=== PATIENT | female | born 1955 | race Caucasian/White ===

== ENCOUNTER 2020-04-30 10:51 | Outpatient (REF) | payer MEDICARE, MEDICAID, SELFPAY ==
[2020-04-30 14:36] LABS: MANUAL DIFF FLAG NO
[2020-04-30 14:43] LABS: Basophils Absolute Auto 0.1 X10*3/uL (0.0-0.2); Basophils Percent Auto 0.6 % (0-2); Hematocrit 43.8 % (37-47); Imm Gran Abs Auto 0.06 X10*3/uL (0.00-0.03); Imm Gran Pct Auto 0.6 % (0.0-0.4); Lymphocytes Absolute Auto 2.3 X10*3/uL (1.2-4.9); Lymphocytes Percent Auto 24.7 % (20-40); Mean Corpuscular Hemoglobin 28.5 pg (27.0-33.0); Mean Corpuscular Volume 89.2 fL (80-98); Mean Platelet Volume 9.9 fL (9.4-12.3); Monocytes Absolute Auto 0.7 X10*3/uL (0.1-1.2); Monocytes Percent Auto 7.4 % (2-11); Neutrophils Absolute Auto 6.2 X10*3/uL (2.0-8.3); Neutrophils Percent Auto 66.7 % (45-73); Platelet Count 252 X10*3/uL (160-400); Red Blood Count 4.91 X10*6/uL (4.20-5.50); Red Cell Distribution Width 14.6 % (11.0-16.0); White Blood Count 9.3 X10*3/uL (4.8-10.8)
[2020-04-30 15:22] LABS: Alanine Aminotransferase 13 U/L (0-31); Albumin Level 4.4 g/dL (3.5-5.0); Alkaline Phosphatase 128 U/L (39-117); Anion Gap 17 (12-20); Aspartate Amino Transferase 12 U/L (5-31); Bilirubin Total 0.3 mg/dL (0.0-1.0); Blood Urea Nitrogen 15 mg/dL (9-16); Calcium 8.7 mg/dL (8.4-10.2); Carbon Dioxide 27 mmol/L (22-29); Chloride 102 mmol/L (96-108); Cholesterol 131 mg/dL; Estimated Glomerular Filt Rate > 60; Glucose Fasting 116 mg/dL (60-99); HDL Cholesterol 35 mg/dL; LDL Cholesterol Calculated 52 mg/dl; Potassium 4.6 mmol/l (3.3-5.1); Sodium 141 mmol/L (135-145); Total Protein 7.9 g/dL (6.5-8.0); Triglycerides 220 mg/dL
[2020-04-30 15:26] LABS: Estimated Average Glucose 140 mg/dL; Hemoglobin A1c % 6.5 %
[2020-04-30 15:47] LABS: Microalbum/Creatinine Ratio Ur 18.7 ug/mg cr
== END 2020-04-30 10:52 | disposition home or self-care (01) ==
LOC: HO.HMGCLDS 10:51
PROVIDERS: PCP Internal Medicine; Visit Provider Internal Medicine
DX: E11.9 Type 2 diabetes mellitus without complications (principal); E78.5 Hyperlipidemia, unspecified; F32.9 Major depressive disorder, single episode, unspecified; K21.9 Gastro-esophageal reflux disease without esophagitis
CPT/HCPCS: 36415; 80053; 80061; 82043; 83036; 85025

== ENCOUNTER 2020-10-28 11:35 | Outpatient (REF) | payer MEDICARE, MEDICAID, SELFPAY ==
[2020-10-28 14:51] LABS: Estimated Average Glucose 120 mg/dL; Hemoglobin A1c % 5.8 %
[2020-10-28 14:58] LABS: Alanine Aminotransferase 11 U/L (0-31); Albumin Level 4.3 g/dL (3.5-5.0); Alkaline Phosphatase 128 U/L (39-117); Anion Gap 17 (12-20); Aspartate Amino Transferase 11 U/L (5-31); Bilirubin Total 0.7 mg/dL (0.0-1.0); Blood Urea Nitrogen 17 mg/dL (9-16); Calcium 9.5 mg/dL (8.4-10.2); Carbon Dioxide 26 mmol/L (22-29); Chloride 103 mmol/L (96-108); Cholesterol 121 mg/dL; Estimated Glomerular Filt Rate > 60; Glucose Fasting 112 mg/dL (60-99); HDL Cholesterol 30 mg/dL; LDL Cholesterol Calculated 48 mg/dl; Potassium 4.1 mmol/L (3.3-5.1); Sodium 142 mmol/L (135-145); Total Protein 7.6 g/dL (6.5-8.0); Triglycerides 216 mg/dL
== END 2020-10-28 11:36 | disposition home or self-care (01) ==
LOC: HO.HMGCLDS 11:35
PROVIDERS: PCP Internal Medicine; Visit Provider Internal Medicine
DX: E11.9 Type 2 diabetes mellitus without complications (principal); E78.5 Hyperlipidemia, unspecified; F17.200 Nicotine dependence, unspecified, uncomplicated; J44.9 Chronic obstructive pulmonary disease, unspecified
CPT/HCPCS: 36415; 80053; 80061; 83036

== ENCOUNTER 2021-05-04 12:38 | Outpatient (REF) | payer MEDICARE, MEDICAID, SELFPAY ==
[2021-05-04 13:54] LABS: Hematocrit 41.2 % (37.0-47.0); Hemoglobin 13.2 g/dl (12.0-16.0); Mean Corpuscular Hemoglobin 27.8 pg (27.0-33.0); Mean Corpuscular Volume 86.9 fL (80.0-98.0); Mean Platelet Volume 9.8 fL (9.4-12.3); Platelet Count 251 X10*3/uL (160-400); Red Blood Count 4.74 X10*6/uL (4.20-5.50); Red Cell Distribution Width 14.2 % (11.0-16.0)
[2021-05-04 13:59] LABS: Estimated Average Glucose 114 mg/dL; Hemoglobin A1c % 5.6 %
[2021-05-04 14:29] LABS: Creatinine Urine 75.06 mg/dL; Microalbum/Creatinine Ratio Ur 6.6 ug/mg cr
[2021-05-04 14:37] LABS: Alanine Aminotransferase 13 U/L (0-31); Albumin Level 4.2 g/dL (3.5-5.0); Alkaline Phosphatase 110 U/L (39-117); Anion Gap 12 (12-20); Aspartate Amino Transferase 11 U/L (5-31); Bilirubin Total 0.5 mg/dL (0.0-1.0); Blood Urea Nitrogen 18 mg/dL (9-16); Calcium 9.4 mg/dL (8.4-10.2); Carbon Dioxide 30 mmol/L (22-29); Chloride 102 mmol/L (96-108); Cholesterol 123 mg/dL; Estimated Glomerular Filt Rate > 60; Glucose Fasting 83 mg/dL (60-99); HDL Cholesterol 34 mg/dL; LDL Cholesterol Calculated 57 mg/dl; Potassium 4.5 mmol/L (3.3-5.1); Sodium 139 mmol/L (135-145); Total Protein 7.5 g/dL (6.5-8.0); Triglycerides 161 mg/dL
== END 2021-05-04 12:39 | disposition home or self-care (01) ==
LOC: HO.HMGCLDS 12:38
PROVIDERS: PCP Internal Medicine; Visit Provider Internal Medicine
DX: E78.5 Hyperlipidemia, unspecified (principal); J44.9 Chronic obstructive pulmonary disease, unspecified; F32.9 Major depressive disorder, single episode, unspecified; E11.9 Type 2 diabetes mellitus without complications
CPT/HCPCS: 36415; 80053; 80061; 82043; 83036; 85027

== ENCOUNTER 2021-07-04 15:18 | Outpatient (REF) | payer MEDICARE, MEDICAID, SELFPAY ==
--- NOTE | ~2021-07-04 | MM_ITS ---
EXAMINATION: MM SCREENING DIGITAL BREAST TOMOSYNTHESIS, BILATERAL CLINICAL INFORMATION: Screening. Asymptomatic. The lifetime risk of breast cancer based on the Tyrer-Cuzick Model is 6%. COMPARISON: Mammography: 03/30/2015, 08/01/2012 TECHNIQUE: Digital breast tomosynthesis is performed in both the craniocaudal and mediolateral oblique views along with computer-aided detection (CAD). Synthesized 2D images are generated from the tomosynthesis. FINDINGS: The breasts are almost entirely fatty (ACR BI-RADS breast composition Category a). There is fine background fibronodular changes. Parenchymal pattern is similar to prior studies. There is no developing density or architectural abnormality. The axilla and skin contours are unremarkable. No significant changes. MM/MM tomosynthesis screening BI IMPRESSION: No mammographic evidence of malignancy. ASSESSMENT: BI-RADS 1: Negative RECOMMENDATION: Routine annual mammography screening. This patient's information was entered into a reminder system with a target due date for their next mammogram.
== END 2021-07-04 15:19 | disposition home or self-care (01) ==
LOC: HO.MAMMO 15:18
PROVIDERS: PCP Internal Medicine; Visit Provider Internal Medicine
DX: Z12.31 Encounter for screening mammogram for malignant neoplasm of breast (principal)
CPT/HCPCS: 77063; 77067

== ENCOUNTER 2022-02-21 16:01 | Outpatient (REF) | payer MEDICARE, MEDICAID, SELFPAY ==
--- NOTE | ~2022-02-21 | XR_ITS ---
EXAMINATION: CR X-RAY SHOULDER AND HUMERUS RIGHT CLINICAL INFORMATION: Right arm contusion. COMPARISON: None TECHNIQUE: 3 views of the right shoulder and 2 views of the right humerus were obtained. FINDINGS: There is an acute, minimally displaced right humeral surgical neck fracture. The distal right humerus is intact. The elbow and shoulder joints are intact. Mild right acromio clavicular degenerative joint changes. The visualized right ribs are intact. The soft tissues are unremarkable. XR/XR humerus RT IMPRESSION: Acute, minimally displaced right humeral surgical neck fracture.
--- NOTE | ~2022-02-21 | XR_ITS ---
EXAMINATION: CR X-RAY SHOULDER AND HUMERUS RIGHT CLINICAL INFORMATION: Right arm contusion. COMPARISON: None TECHNIQUE: 3 views of the right shoulder and 2 views of the right humerus were obtained. FINDINGS: There is an acute, minimally displaced right humeral surgical neck fracture. The distal right humerus is intact. The elbow and shoulder joints are intact. Mild right acromio clavicular degenerative joint changes. The visualized right ribs are intact. The soft tissues are unremarkable. XR/XR shoulder RT min 2V IMPRESSION: Acute, minimally displaced right humeral surgical neck fracture.
== END 2022-02-21 16:02 | disposition home or self-care (01) ==
LOC: HO.HMGCX 16:01
PROVIDERS: Visit Provider Internal Medicine
DX: S40.021A Contusion of right upper arm, initial encounter (principal)
CPT/HCPCS: 73030; 73060

== ENCOUNTER 2022-02-22 09:35 | Emergency (ER) | payer MEDICARE, MEDICAID, SELFPAY ==
--- NOTE | ~2022-02-22 | XR_ITS ---
EXAMINATION: XR KNEE, RIGHT CLINICAL INFORMATION: Right knee pain status post fall yesterday. COMPARISON: None TECHNIQUE: Four views of the right knee. FINDINGS: [id number] tricompartmental degenerative joint changes are seen most pronounced in the medial femoral-tibial and patellofemoral joint spaces. There is no acute fracture or dislocation. There is a small suprapatellar joint effusion. Mild soft tissue swelling is seen. XR/XR knee RT 3V IMPRESSION: Uqfa-im-[id number] tricompartmental degenerative joint changes with small suprapatellar joint effusion. No overt acute osseous abnormality.
--- NOTE | ~2022-02-22 | CT_ITS ---
EXAMINATION: CT CERVICAL SPINE WITHOUT CONTRAST CLINICAL INFORMATION: Pain after falling COMPARISON: None TECHNIQUE: Thin section axial images with sagittal and coronal reformats. This CT examination was performed using dose optimization techniques as appropriate, variously including the following: *Automated exposure control *Adjustment of mA and/or kV according to patient size (this includes techniques or standardized protocols for targeted exams where dose is matched to indication/reason for exam; i.e. extremities or head) *Use of iterative reconstruction technique DLP: 363 mGy-cm FINDINGS: There is advanced degenerative change observed, C4-T1 with prominent marginal spurring but no fracture or destructive process. Posterior spurring particularly at C5-C6 does create slight mass effect on the ventral aspect of the canal but no justice cord compression. Multilevel foraminal encroachment noted. Prevertebral soft tissues normal. Lung apices clear. CT/CT cervical spine wo IV con IMPRESSION: Advanced multilevel degenerative change. No fracture.
--- NOTE | ~2022-02-22 | CT_ITS ---
EXAMINATION: CT HEAD WITHOUT CONTRAST CLINICAL INFORMATION: Patient fell yesterday. Head injury COMPARISON: None TECHNIQUE: Contiguous axial imaging was performed from the skull base to vertex without intravenous administration of contrast. This CT examination was performed using dose optimization techniques as appropriate, variously including the following: *Automated exposure control *Adjustment of mA and/or kV according to patient size (this includes techniques or standardized protocols for targeted exams where dose is matched to indication/reason for exam; i.e. extremities or head) *Use of iterative reconstruction technique DLP: 622 mGy-cm FINDINGS: Mild prominence to the sulci and ventricles but no intra or extra-axial fluid collection or hemorrhage, mass or mass effect. There is an old small left basal ganglia and right basal ganglia lacune. New infarctions are not seen. Calvarium intact. CT/CT head/brain wo IV con IMPRESSION: No acute findings.
[2022-02-22 10:00] VITALS: BP 138/74; PULSE 98; O2SAT 98
[2022-02-22 10:17] VITALS: BP 149/70; PULSE 72; RESP 16; TEMP 36.9; O2SAT 97; BMI 31.6
--- NOTE | 2022-02-22 11:33 | ED_ITS ---
HPI - General Adult General Chief complaint: Extremity Injury, Lower Stated complaint: R KNEE PAIN S/P FALL T-1,SEEN @URGENT CARE PER [facility] Time Seen by Provider: 02/22/22 10:03 Source: patient and EMS Mode of arrival: EMS History of Present Illness HPI narrative: 66-year-old female with a past medical history of COPD, depression, diabetes, GERD, HLD, presenting to the ED complaining of right knee pain s/p mechanical trip and fall at [employer] yesterday. Patient was seen at urgent care yesterday s/p fall diagnosed with right humeral neck fracture, currently in sling. Also reports hit head yesterday, denies LOC or BYRNE. Denies rec urrent/more recent fall, or symptoms prior to fall. Denies neck/back pain, abdominal pain, nausea/vomiting Patient is poor historian Onset (ago): day(s) Related Data Home Medications Medication Instructions Recorded Confirmed lorazepam 0.5 mg tablet (Ativan) 0.5 mg PO BID 04/28/20 02/22/22 oxcarbazepine 150 mg tablet 150 mg PO DAILY 04/28/20 02/22/22 oxcarbazepine 300 mg tablet 300 mg PO DAILY 04/28/20 02/22/22 risperidone 4 mg tablet (Risperdal) 4 mg PO DAILY 04/28/20 02/22/22 Previous Rx's Medication Instructions Recorded metoprolol succinate 25 mg 25 mg PO DAILY #90 tabs 03/16/21 tablet,extended release 24 hr atorvastatin 80 mg tablet (Lipitor) 80 mg PO DAILY #90 tabs 04/02/21 tiotropium bromide 2.5 2 puff inhalation DAILY #4 grams 08/30/21 mcg/actuation mist for inhalation (Spiriva Respimat) metformin 500 mg tablet 500 mg PO BID #180 tabs 10/07/21 ibuprofen 400 mg tablet 400 mg PO Q6H PRN fever or pain 02/22/22 #14 tabs Allergies Allergy/AdvReac Type Severity Reaction Status Date / Time acetaminophen [From PERCOCET] Allergy Mild ITCH Verified 02/21/22 15:33 oxycodone [From PERCOCET] Allergy Mild ITCH Verified 02/21/22 15:33 morphine Allergy Unknown pt denies Verified 02/21/22 15:33 Review of Systems Review of Systems: Constitutional: No Fever, No Chills ENT/Mouth: No Ear Pain, No Nasal Congestion, No sore throat, No Rhinorrhea, No Swallowing Difficulty Cardiovascular: No Chest Pain, No SOB Respiratory: No Cough, No Sputum, No Wheezing Gastrointestinal: No Nausea, No Vomiting, No Diarrhea, No Constipation, No Abdominal pain Genitourinary: No Dysuria, No Urinary Frequency, No Hematuria, No Urinary Incontinence/retention Musculoskeletal: + joint pain, No Myalgias, + Joint Swelling Skin: No Skin Lesions, No rash Neuro: No Weakness, No Numbness, No Paresthesias, + head injury, no LOC, no headache Yes all other systems are reviewed and are negative Constitutional: Constitutional: Reports as per [facility] Past Medical History Attestation statement: The following information was validated with the patient. Medical History (Updated 02/22/22 @ 17:40 by LIMA Pinzon) Annual physical exam Colonoscopy refused COPD (chronic obstructive pulmonary disease) Depression DM type 2 (diabetes mellitus, type 2) GERD (gastroesophageal reflux disease) Hoarseness Hyperlipidemia Onychomycosis Tobacco dependence Social History Social History Alcohol intake: never Advance Directives: Yes Advance Directives on File: Yes Advance Directives Date on File: 02/22/22 Physical Exam ED Vital Signs: Vital Signs - 24 hr 02/22/22 10:17 02/22/22 13:07 02/22/22 14:42 Temperature 98.4 F Pulse Rate 72 72 67 Respiratory Rate 16 16 Blood Pressure 149/70 H 149/70 H 148/63 H Pulse Oximetry 97 97 96 Oxygen Delivery Method Room Air Room Air BMI result Body Mass Index 31.6 Const General: cooperative, healthy appearing, comfortable and no acute distress Orientation/consciousness: patient oriented x3 Limitations: no limitations HENMT Head: Yes normal to inspection, Yes No palpable skull fracture present, Yes atraumatic, No Gamez's sign and No contusion Ears: hearing grossly normal bilaterally General nose exam: Normal external nose present Face and sinus: Yes normal facial exam Throat: Yes posterior oropharynx normal Eyes General: appearance normal, both eyes and all related structures EOM: EOMs intact bilaterally Neck Other: No midline cervical spinous tenderness Neck: Yes normal visual inspection and Yes no meningeal signs Resp Effort & Inspection: normal respiratory effort and no respiratory distress Cardio Rate: regular rate Heart sounds: S1 normal heart sound present and S2 normal heart sound present GI Inspection: Yes normal to inspection Palpation (GI): Soft to palpation, nontender, no guarding and not rigid General: Yes no CVA tenderness Back/Spine/Pelvis Other: No midline thoracic/lumbar spinous tenderness/step-off or deformity Back: no CVA tenderness Skin Rashes: no rashes Wounds: no wounds Neuro General: patient oriented x3, gait normal, tone normal, no meningeal signs, no focal motor deficits and CN's II-XI intact bilaterally Cognition (Neuro): normal cognition Gait exam (Neuro): Normal gait present Motor exam (neuro): 5/5 motor strength present throughout Extrem Other: RUE in sling with tenderness to proximal humerus and elbow. Neurovascular intact distally. Limited ROM secondary to pain. Right knee with mild swelling and diffuse tenderness. Decreased full extension and flexion secondary to pain. Neurovascular intact distally. Pelvis stable Course Course Course Narrative: CT head/brain wo IV con IMPRESSION: No acute findings. CT cervical spine wo IV con IMPRESSION: Advanced multilevel degenerative change. No fracture.? XR knee RT 3V IMPRESSION: [id number] tricompartmental degenerative joint changes with small suprapatellar joint effusion. No overt acute osseous abnormality. > Wei wrap applied for comfort. Patient is unable to stand/ambulate secondary to pain. Due to humeral head fracture will be unable to use crutches and lives home alone, will obtain PT/case management consult Physician observation initiated at 12:45 as patient needs more time for PT/Case Management eval\ -PT reccommended STR. patient likely to go to [facility] either today or tomorrow -1900-- ED care transferred to [facility] Lamar pending CM placement Medical Decision Making MDM Narrative Medical decision making narrative: 66-year-old female with a past medical history of COPD, depression, diabetes, GERD, HLD, presenting to the ED complaining of right knee pain s/p mechanical trip and fall at [employer] yesterday. Also reports hit head yesterday. On exam vital signs stable, NAD, no midline spinous tenderness throughout, physical exam as above. Concern for knee fracture vs sprain vs concussion/ICH. Low suspicion for intra-abdominal injury/bleeding. X-rays reviewed from yesterday which show acute minimally displaced right humeral neck fracture Plan: Head/C-spine CT, knee x-ray Medical Records Medical records reviewed: Yes I reviewed the patient's medical records. Lab Data Lab results reviewed: Yes I reviewed the patient's lab results. Labs: Lab Results 02/22/22 Range/Units 14:41 COVID-19 (CHENG) Negative (Negative) COVID-19 Clin Com See Note Discharge Plan Discharge Clinical Impression: Joint effusion of knee, Degenerative cervical disc, Fall, Fracture of neck of humerus Patient Disposition: Still a Patient Instructions: Fall Prevention (ED), Degenerative Disc Disease (ED), Swollen Joint (ED) Additional Instructions: Your CT does not show any findings in her brain. You do have multilevel degenerative changes of her spine. You have arthritic changes of her knee as well with mild effusion Wear Wei wrap for comfort and stability. Take Motrin as needed for pain/swelling Please have close follow-up with her doctor Be sure to follow-up with orthopedics for your arm fracture Prescriptions: New ibuprofen 400 mg tablet 400 mg PO Q6H PRN (Reason: fever or pain) Qty: 14 0RF No Action metoprolol succinate 25 mg tablet extended release 24 hr 25 mg PO DAILY Qty: 90 3RF atorvastatin [Lipitor] 80 mg tablet 80 mg PO DAILY Qty: 90 3RF Spiriva Respimat 2.5 mcg/actuation mist 2 puff inhalation DAILY Qty: 4 3RF metformin 500 mg tablet 500 mg PO BID Qty: 180 3RF lorazepam [Ativan] 0.5 mg tablet 0.5 mg PO BID risperidone [Risperdal] 4 mg tablet 4 mg PO DAILY oxcarbazepine 150 mg tablet 150 mg PO DAILY oxcarbazepine 300 mg tablet 300 mg PO DAILY Referrals: Eveline Ortega MD [Primary Care Provider] - 1 week
[2022-02-22] MEDS: Ibuprofen 600 MG TABLET PO (12:39)
--- NOTE | 2022-02-22 12:42 | PC.NURSE ---
spoke with [facility] outsole caser, Mariza and professional programmer analyst, Kalyani. [facility] does not have resources for pt to have round the clock care at home, as they are only providing services for 0800 to 1999. explained pt is unable to utilize crutches for her knee pain and will likely need STR. [facility] requests to be advised when pt will be going to rehab. Mariza Chambers:[phone] Kalyani Chan [phone]
[2022-02-22 13:07] VITALS: BP 149/70; PULSE 72; O2SAT 97
--- NOTE | 2022-02-22 13:27 | PHA.MEDREC ---
Pharmacy Consult ? Medication Reconciliation Pharmacy has completed the medication reconciliation.
[2022-02-22 14:42] VITALS: BP 148/63; PULSE 67; RESP 16; O2SAT 96
[2022-02-22 15:10] LABS: COVID-19 Test Negative (Negative); IDNOW Serial# 16C4AD1C
--- NOTE | 2022-02-22 15:38 | MHC.CM.ED ---
Received case management consult from Bonnie AMATO. Patient came to the ER due to a fall. Patient was at Urgent Care on 02/21. Found to have a humerus fx. Patient fell again at home. Found to have a patellar fx. Physical therapy eval completed. Short term rehab is recommended. Met with patient in regards to discharge planning. Patient lives alone and is active with [facility]. PCP verified. Copy of HCP verified to be on file. Patient received 2 Covid vaccines but not boosters. [facility], [address] [place] [address] and [facility] are able to offer a bed. Patient chooses [facility] as first choice. Patient has a history of Bipolar and is active with [facility] for med compliance. Patient will need a [facility] PASRR Level 2 before transferring to [facility]. T/W already submitted for Level 2. Continue to monitor for d/c needs.
[2022-02-22 17:11] LABS: Influenza A PCR NEGATIVE (Negative); Influenza B PCR NEGATIVE (Negative); Resp Syncy Virus RNA Qual PCR NEGATIVE (Negative); SARS COV2 PCR INHOUSE NEGATIVE (Negative)
[2022-02-22] MEDS: metFORMIN HCl 500 MG TABLET PO (20:58)
[2022-02-22] MEDS: LORazepam 0.5 MG TABLET PO (20:58)
[2022-02-22] MEDS: Ketorolac Tromethamine 15 MG/ML VIAL IM (21:30)
--- NOTE | 2022-02-22 22:59 | PC.NURSE ---
Pt is now PT/CM for STR, PO intake adequate, consumed 60% of dinner pt a&o x3, non weightbearing d/t knee pain r/t fall and s/p humerus fx. pt has sling on right shoulder, immanuel wrap in place on right knee for comfort and support. Pt received toradol 15mg IM for 8/10 knee pain with pt reporting (+) effect. Pt resting comfortably, call ortiz within reach.
[2022-02-22 23:36] VITALS: BP 122/65; PULSE 68; RESP 16; TEMP 36.6; O2SAT 95
[2022-02-23 07:35] VITALS: BP 118/67; PULSE 76; RESP 16; TEMP 36.7; O2SAT 93
[2022-02-23 07:45] LABS: Glucose, Whole Blood 122 mg/dL (60-115)
[2022-02-23] MEDS: oxyCODONE HCl Immed Release 5 MG TABLET PO (08:56)
[2022-02-23] MEDS: Acetaminophen 325 MG TABLET 975 MG PO (08:57)
[2022-02-23] MEDS: LORazepam 0.5 MG TABLET PO (08:57)
[2022-02-23] MEDS: risperiDONE 2 MG TABLET 4 MG PO (08:57)
[2022-02-23] MEDS: metFORMIN HCl 500 MG TABLET PO (08:57)
[2022-02-23] MEDS: OXcarbazepine 300 MG TABLET PO (08:57)
[2022-02-23] MEDS: OXcarbazepine 150 MG TABLET PO (08:57)
[2022-02-23] MEDS: Atorvastatin Calcium 80 MG TABLET PO (08:57)
[2022-02-23] MEDS: Metoprolol Succinate ER 25 MG TAB.ER.24H PO (08:57)
--- NOTE | 2022-02-23 12:31 | MHC.CM.ED ---
Patient remains in ER. [facility] PASRR Level 2 has been obtained. Patient can transfer to [facility] at 1pm. [facility] booked. Med nec with chart. Patient, Samanta SPENCER and Jess AMATO aware. [facility] also made aware. Continue to monitor for d/c needs.
[2022-02-23] MEDS: Ibuprofen 600 MG TABLET PO (12:37)
== END 2022-02-23 13:17 ==
PROVIDERS: Physician Assistant; Emergency Provider Emergency Medicine; PCP Internal Medicine
DX: S42.211A Unspecified displaced fracture of surgical neck of right humerus, initial encounter for closed fracture (principal); M25.461 Effusion, right knee; R51.9 Headache, unspecified; M25.561 Pain in right knee; M54.2 Cervicalgia; W01.0XXA Fall on same level from slipping, tripping and stumbling without subsequent striking against object, initial encounter; Y93.9 Activity, unspecified; Y92.510 Bank as the place of occurrence of the external cause; Y99.9 Unspecified external cause status; Z79.899 Other long term (current) drug therapy; Z20.822 Contact with and (suspected) exposure to COVID-19
CPT/HCPCS: 0241U; 70450; 72125; 73562; 82947; 87635; 96372; 97162; 99284; 99285; J1885

== ENCOUNTER 2022-03-06 08:32 | Outpatient (REF) | payer MEDICARE, MEDICAID, SELFPAY ==
--- NOTE | ~2022-03-06 | XR_ITS ---
EXAMINATION: XR SHOULDER, RIGHT CLINICAL INFORMATION: Right shoulder pain COMPARISON: Right shoulder x-rays 02/21/2022 TECHNIQUE: Two views of the right shoulder. FINDINGS: Again demonstrated is a nondisplaced fracture of the right humeral head/neck. There is no appreciable callus formation noted. Humeral head continues to demonstrate good articulation with the glenoid fossa. Visualized right-sided ribs and lung parenchyma are unremarkable. XR/XR shoulder RT min 2V IMPRESSION: Similar appearance of proximal right humeral fracture.
== END 2022-03-06 08:33 | disposition home or self-care (01) ==
LOC: HO.HOSX 08:32
PROVIDERS: Visit Provider Physician Assistant
DX: M25.511 Pain in right shoulder (principal)
CPT/HCPCS: 73030; 99202

== ENCOUNTER 2022-03-30 15:30 | Emergency (ER) | payer MEDICARE, MEDICAID, SELFPAY ==
--- NOTE | ~2022-03-30 | XR_ITS ---
EXAMINATION: XR CHEST CLINICAL INFORMATION: Weakness COMPARISON: 10/04/2019 TECHNIQUE: 2 views of the chest were obtained. FINDINGS: The lungs are well expanded. There is no focal consolidation, edema, or effusion. No pneumothorax. The cardiomediastinal silhouette is within normal limits. No acute osseous abnormality. Proximal right humeral fracture again noted with callus formation. XR/XR chest 2V IMPRESSION: Clear lungs.
[2022-03-30 15:51] VITALS: BP 112/84; PULSE 100; O2SAT 95
[2022-03-30 16:04] VITALS: BMI 31.4
--- NOTE | 2022-03-30 16:13 | ECG_ITS ---
Test Reason : GENERAL MEDICAL Blood Pressure : / mmHG Vent. Rate : 099 BPM Atrial Rate : 099 BPM P-R Int : 150 ms QRS Dur : 076 ms QT Int : 344 ms P-R-T Axes : 027 000 027 degrees QTc Int : 441 ms Normal sinus rhythm Possible Inferior infarct , age undetermined Anterior infarct , age undetermined Abnormal ECG When compared with ECG of 15-JAN-2019 10:48, Anterior infarct is now Present T wave amplitude has decreased in Anterior leads Referred By: Kirby Castillo Electronically Signed By:ARRON CAUSEY
--- NOTE | 2022-03-30 16:18 | ED_ITS ---
HPI - General Adult General Chief complaint: General Medical Stated complaint: failure to thrive Time Seen by Provider: 03/30/22 16:11 Related Data Home Medications Medication Instructions Recorded Confirmed lorazepam 0.5 mg tablet (Ativan) 0.5 mg PO BID 04/28/20 02/22/22 oxcarbazepine 150 mg tablet 150 mg PO DAILY 04/28/20 02/22/22 oxcarbazepine 300 mg tablet 300 mg PO DAILY 04/28/20 02/22/22 risperidone 4 mg tablet (Risperdal) 4 mg PO DAILY 04/28/20 02/22/22 Previous Rx's Medication Instructions Recorded atorvastatin 80 mg tablet (Lipitor) 80 mg PO DAILY #90 tabs 04/02/21 tiotropium bromide 2.5 2 puff inhalation DAILY #4 grams 08/30/21 mcg/actuation mist for inhalation (Spiriva Respimat) metformin 500 mg tablet 500 mg PO BID #180 tabs 10/07/21 ibuprofen 400 mg tablet 400 mg PO Q6H PRN fever or pain 02/22/22 #14 tabs lorazepam 0.5 mg tablet (Ativan) 0.5 mg PO BID #6 tabs 02/23/22 oxycodone 5 mg tablet 5 mg PO Q8H PRN severe pain (scale 02/23/22 score 7-10) #9 tabs omeprazole 20 mg capsule,delayed 20 mg PO DAILY #30 caps 03/16/22 release metoprolol succinate 25 mg 25 mg PO DAILY #90 tabs 03/24/22 tablet,extended release 24 hr Allergies Allergy/AdvReac Type Severity Reaction Status Date / Time acetaminophen [From PERCOCET] AdvReac Mild ITCH Verified 03/30/22 16:04 oxycodone [From PERCOCET] AdvReac Mild ITCH Verified 03/30/22 16:04 morphine AdvReac Unknown pt denies Verified 03/30/22 16:04 Review of Systems Review of Systems: Review of systems: General:? Patient denies any fever chills recent illness or falls Musculoskeletal: Denies back pain or body aches or other injuries HEENT: denies headache, runny nose, ear pain Respiratory: denies shortness of breath, cough Cardiovascular: no chest pain or palpitations : denies dysuria, frequency Abdomen: no nausea vomiting denies abdominal pain? Extremities: no swelling, no pain Skin: no diaphoresis Yes all other systems are reviewed and are negative PMFSH Past Medical History Medical History Annual physical exam Colonoscopy refused COPD (chronic obstructive pulmonary disease) Depression DM type 2 (diabetes mellitus, type 2) GERD (gastroesophageal reflux disease) Hoarseness Hyperlipidemia Onychomycosis Tobacco dependence Social History Social History Alcohol intake: never Advance Directives: Yes Advance Directives on File: Yes Advance Directives Date on File: 02/22/22 Physical Exam ED Vital Signs: Vital Signs - 24 hr 03/30/22 17:38 Temperature 98.6 F Pulse Rate 91 Respiratory Rate 16 Blood Pressure 124/72 Pulse Oximetry 97 Oxygen Delivery Method Room Air BMI result Body Mass Index 31.4 Neurological exam: CN II- XII tested. Patient is alert and oriented to person place and time. Patient has no dysphagia or dysarthia, denies good vision in all four vision deluna no nystagmus on exam, good strength to upper and lower extre mities with normal reflexes to brachioradialis, wrist, patella and achilles.? Negative romberg, good finger to nose and heel to keene.?? General: Well-appearing well-nourished in no signs of distress HEENT: Normocephalic atraumatic? Neck: No signs of JVD, no masses no tenderness or lymphadenopathy Cardiovascular: Regular rate and rhythm Respiratory: Clear to auscultation bilaterally Abdomen: Soft nontender no masses Extremities: Normal pedal pulses no signs of edema Skin: Dry warm no rashes Back: No tenderness full ROM Medical Decision Making MDM Narrative Medical decision making narrative: Patien there for failure to thrive. I will give fluids and check labs and XR. Patient asking for food I had the nurse order a diet. She has no obvious deficits and otherwise looks well. I will continue with workup. Labs XR are all normal I don't have a medical reason to admit but patient has been home two weeks and is uncapable of taking care of herself urinating on herself. I will consult PT and case management. Lab Data Lab results reviewed: Yes I reviewed the patient's lab results. Result diagrams: 03/30/22 16:58 03/30/22 16:58 Labs: Lab Results 03/30/22 03/30/22 03/30/22 Range/Units 16:58 16:58 16:58 WBC 6.2 (4.8-10.8) X10*3/uL RBC 4.37 (4.20-5.50) X10*6/uL Hgb 11.8 L (12.0-16.0) g/dl Hct 37.0 (37.0-47.0) % MCV 84.7 (80.0-98.0) fL MCH 27.0 (27.0-33.0) pg MCHC 31.9 (31.0-35.0) g/dl RDW 14.8 (11.0-16.0) % Plt Count 211 (160-400) X10*3/uL MPV 9.7 (9.4-12.3) fL Immature Gran % (Auto) 0.2 (0.0-0.4) % Neut % (Auto) 70.0 (45-73) % Lymph % (Auto) 21.8 (20-40) % [place] % (Auto) 7.7 (2-11) % Eos % (Auto) 0.0 (0-4) % Baso % (Auto) 0.3 (0-2) % Lymph # (Auto) 1.4 (1.2-4.9) X10*3/uL [place] # (Auto) 0.5 (0.1-1.2) X10*3/uL Eos # (Auto) 0.0 (0.0-0.4) X10*3/uL Baso # (Auto) 0.0 (0.0-0.2) X10*3/uL Abs Immat Gran (auto) 0.01 (0.00-0.03) X10*3/uL Absolute Neuts (auto) 4.4 (2.0-8.3) x10*3/uL Absolute Nucleated RBC 0.000 (0.0-0.012) X10*3/uL Nucleated RBC % (auto) 0.0 (0.0-0.2) /100WBC Sodium 140 (135-145) mmol/L Potassium 3.8 (3.3-5.1) mmol/L Chloride 100 (96-108) mmol/L Carbon Dioxide 25 (22-29) mmol/L Anion Gap 19 (12-20) BUN 17 H (9-16) mg/dL Creatinine 0.79 (0.5-1.4) mg/dL Estim Creat Clear Calc 64.1 Estimated GFR > 60 Random Glucose 65 (60-115) mg/dL Calcium 9.3 (8.4-10.2) mg/dL Total Bilirubin 0.4 (0.0-1.0) mg/dL Direct Bilirubin 0.2 (0.0-0.5) mg/dL AST 13 (5-31) U/L ALT 9 (0-31) U/L Alkaline Phosphatase 125 H (39-117) U/L Total Protein 7.1 (6.5-8.0) g/dL Albumin 4.0 (3.5-5.0) g/dL Lipase 13 (8-78) U/L Urine Color Urine Appearance Urine pH (5.0-9.0) Ur Specific [place] (1.005-1.025) Urine Protein (Neg-Trace) mg/dL Urine Glucose (UA) (Negative) mg/dL Urine Ketones (Negative) mg/dL Urine Blood (Negative) Urine Nitrite (Negative) Ur Leukocyte Esterase (Negative) Urine Opiates Screen (Not Detect) Urine Fentanyl Screen (Not Detect) Ur Barbiturates Screen (Not Detect) Ur Phencyclidine Scrn (Not Detect) Ur Amphetamines Screen (Not Detect) U Benzodiazepines Scrn (Not Detect) Urine Cocaine Screen (Not Detect) U Marijuana (THC) Screen (Not Detect) Ethyl Alcohol < 10 mg/dL COVID-19 (CHENG) Negative (Negative) COVID-19 Clin Com See Note 03/30/22 03/30/22 Range/Units 17:02 17:02 WBC (4.8-10.8) X10*3/uL RBC (4.20-5.50) X10*6/uL Hgb (12.0-16.0) g/dl Hct (37.0-47.0) % MCV (80.0-98.0) fL MCH (27.0-33.0) pg MCHC (31.0-35.0) g/dl RDW (11.0-16.0) % Plt Count (160-400) X10*3/uL MPV (9.4-12.3) fL Immature Gran % (Auto) (0.0-0.4) % Neut % (Auto) (45-73) % Lymph % (Auto) (20-40) % [place] % (Auto) (2-11) % Eos % (Auto) (0-4) % Baso % (Auto) (0-2) % Lymph # (Auto) (1.2-4.9) X10*3/uL [place] # (Auto) (0.1-1.2) X10*3/uL Eos # (Auto) (0.0-0.4) X10*3/uL Baso # (Auto) (0.0-0.2) X10*3/uL Abs Immat Gran (auto) (0.00-0.03) X10*3/uL Absolute Neuts (auto) (2.0-8.3) x10*3/uL Absolute Nucleated RBC (0.0-0.012) X10*3/uL Nucleated RBC % (auto) (0.0-0.2) /100WBC Sodium (135-145) mmol/L Potassium (3.3-5.1) mmol/L Chloride (96-108) mmol/L Carbon Dioxide (22-29) mmol/L Anion Gap (12-20) BUN (9-16) mg/dL Creatinine (0.5-1.4) mg/dL Estim Creat Clear Calc Estimated GFR Random Glucose (60-115) mg/dL Calcium (8.4-10.2) mg/dL Total Bilirubin (0.0-1.0) mg/dL Direct Bilirubin (0.0-0.5) mg/dL AST (5-31) U/L ALT (0-31) U/L Alkaline Phosphatase (39-117) U/L Total Protein (6.5-8.0) g/dL Albumin (3.5-5.0) g/dL Lipase (8-78) U/L Urine Color Yellow Urine Appearance Cloudy Urine pH 5.5 (5.0-9.0) Ur Specific [place] 1.015 (1.005-1.025) Urine Protein 30 (1+) H (Neg-Trace) mg/dL Urine Glucose (UA) Negative (Negative) mg/dL Urine Ketones 80 (Negative) mg/dL Urine Blood Negative (Negative) Urine Nitrite Negative (Negative) Ur Leukocyte Esterase Trace H (Negative) Urine Opiates Screen Not Detected (Not Detect) Urine Fentanyl Screen Not Detected (Not Detect) Ur Barbiturates Screen Not Detected (Not Detect) Ur Phencyclidine Scrn Not Detected (Not Detect) Ur Amphetamines Screen Not Detected (Not Detect) U Benzodiazepines Scrn Not Detected (Not Detect) Urine Cocaine Screen Not Detected (Not Detect) U Marijuana (THC) Screen Not Detected (Not Detect) Ethyl Alcohol mg/dL COVID-19 (CHENG) (Negative) COVID-19 Clin Com Discharge Plan Discharge Clinical Impression: Depression, Adult failure to thrive Patient Disposition: Still a Patient Transfer Details: Patient signed out to Dr. Bautista pending disposition and placement Prescriptions: No Action atorvastatin [Lipitor] 80 mg tablet 80 mg PO DAILY Qty: 90 3RF Spiriva Respimat 2.5 mcg/actuation mist 2 puff inhalation DAILY Qty: 4 3RF metformin 500 mg tablet 500 mg PO BID Qty: 180 3RF omeprazole 20 mg capsule,delayed release(DR/EC) 20 mg PO DAILY Qty: 30 0RF metoprolol succinate 25 mg tablet extended release 24 hr 25 mg PO DAILY Qty: 90 3RF ibuprofen 400 mg tablet 400 mg PO Q6H PRN (Reason: fever or pain) Qty: 14 0RF lorazepam [Ativan] 0.5 mg tablet 0.5 mg PO BID Qty: 6 0RF oxycodone 5 mg tablet 5 mg PO Q8H PRN (Reason: severe pain (scale score 7-10)) Qty: 9 0RF Rx Instructions: Partial Fill upon patient request. lorazepam [Ativan] 0.5 mg tablet 0.5 mg PO BID risperidone [Risperdal] 4 mg tablet 4 mg PO DAILY oxcarbazepine 150 mg tablet 150 mg PO DAILY oxcarbazepine 300 mg tablet 300 mg PO DAILY
[2022-03-30 17:08] LABS: MANUAL DIFF FLAG NO
[2022-03-30 17:12] LABS: Basophils Percent Auto 0.3 % (0-2); Hemoglobin 11.8 g/dl (12.0-16.0); Imm Gran Abs Auto 0.01 X10*3/uL (0.00-0.03); Imm Gran Pct Auto 0.2 % (0.0-0.4); Lymphocytes Absolute Auto 1.4 X10*3/uL (1.2-4.9); Lymphocytes Percent Auto 21.8 % (20-40); Mean Corpuscular HGB Conc 31.9 g/dl (31.0-35.0); Mean Corpuscular Volume 84.7 fL (80.0-98.0); Mean Platelet Volume 9.7 fL (9.4-12.3); Monocytes Absolute Auto 0.5 X10*3/uL (0.1-1.2); Monocytes Percent Auto 7.7 % (2-11); Neutrophils Absolute Auto 4.4 x10*3/uL (2.0-8.3); Platelet Count 211 X10*3/uL (160-400); Red Blood Count 4.37 X10*6/uL (4.20-5.50); Red Cell Distribution Width 14.8 % (11.0-16.0); White Blood Count 6.2 X10*3/uL (4.8-10.8)
[2022-03-30 17:20] LABS: Appearance Urine Cloudy; Color Urine Yellow; Glucose Urine UA Negative (Negative); Leukocyte Esterase Urine Trace (Negative); Nitrite Urine Negative (Negative); PH 5.5 (5.0-9.0); Specific Gravity - Urine 1.015 (1.005-1.025); UMIC TRIGGER UACC YES; Urine Blood Negative (Negative); Urine Ketones 80 mg/dL (Negative); Urine Protein 30 (1+) mg/dL (Neg-Trace)
[2022-03-30 17:31] LABS: COVID-19 Test Negative (Negative); IDNOW Serial# 16C4AD1C
[2022-03-30 17:32] LABS: Alanine Aminotransferase 9 U/L (0-31); Alkaline Phosphatase 125 U/L (39-117); Anion Gap 19 (12-20); Aspartate Amino Transferase 13 U/L (5-31); Bilirubin Direct 0.2 mg/dL (0.0-0.5); Bilirubin Total 0.4 mg/dL (0.0-1.0); Blood Urea Nitrogen 17 mg/dL (9-16); Calcium 9.3 mg/dL (8.4-10.2); Carbon Dioxide 25 mmol/L (22-29); Chloride 100 mmol/L (96-108); Creatinine Clr Calc Pharmacy 64.1; Estimated Glomerular Filt Rate > 60; Ethanol < 10 mg/dL; Glucose Random 65 mg/dL (60-115); Lipase 13 U/L (8-78); Potassium 3.8 mmol/L (3.3-5.1); Sodium 140 mmol/L (135-145); Total Protein 7.1 g/dL (6.5-8.0)
[2022-03-30 17:33] LABS: Amphetamine Screen Urine Not Detected (Not Detect); Barbiturates, Urine Not Detected (Not Detect); Benzodiazepines Screen Urine Not Detected (Not Detect); Cannabinoid Screen Urine Not Detected (Not Detect); Cocaine Screen Urine Not Detected (Not Detect); Fentanyl, urine Not Detected (Not Detect); Opiate Screen Urine Not Detected (Not Detect); Phencyclidine Screen Urine Not Detected (Not Detect)
[2022-03-30 17:38] VITALS: BP 124/72; PULSE 91; RESP 16; TEMP 37; O2SAT 97
[2022-03-30 18:01] LABS: WBC Urine 0-5 /HPF (0-5)
[2022-03-30 18:28] LABS: Bacteria Urine 1+ (None Seen); Hyaline Casts Urine 0-2 /LPF (0-2); RBC Urine 0-2 /HPF (0-2)
[2022-03-30] MEDS: 0.9 % Sodium Chloride 1,000 ML 999 ML IV (18:52)
--- NOTE | 2022-03-30 21:23 | PC.NURSE ---
pt a&ox3, denies any pain at this time, ate 100% of pm meal, no new orders at this time.
[2022-03-31] MEDS: Ibuprofen 400 MG TABLET PO (00:28)
[2022-03-31 02:24] VITALS: BP 115/62; PULSE 85; RESP 18; TEMP 37.1; O2SAT 93
[2022-03-31 07:48] VITALS: BP 115/62; PULSE 85; O2SAT 93
--- NOTE | 2022-03-31 09:57 | MHC.CM.ED ---
Received case management consult ovenight from Dr Castillo. Patient came to the ER due to failure to thrive. Work up essentially negative. Physical therapy eval completed. Short term rehab is recommended. Met with patient in regards to discharge planning. Patient lives alone. Patient was discharged from [facility] on 03/21. VNA was arranged but patient doesn't remember the agency name. HCP verified to be on file. Patient received 2 Pfizer vaccines. Patient agreeable to return to [facility]. Referral made via [facility]. Patient can transfer to [facility] at 1pm if Covid PCR is negative. Covid PCR is ordered. Patient was discharged from [facility] with [facility]. Continue to monitor for d/c needs.
[2022-03-31] MEDS: Atorvastatin Calcium 80 MG TABLET PO (10:35)
[2022-03-31] MEDS: Omeprazole 20 MG CAPSULE.DR PO (10:35)
[2022-03-31] MEDS: LORazepam 0.5 MG TABLET PO (10:36)
[2022-03-31] MEDS: Metoprolol Succinate ER 25 MG TAB.ER.24H PO (10:36)
[2022-03-31] MEDS: metFORMIN HCl 500 MG TABLET PO (10:36)
[2022-03-31] MEDS: risperiDONE 2 MG TABLET 4 MG PO (10:36)
[2022-03-31 10:38] VITALS: BP 124/61; PULSE 70; RESP 17; O2SAT 93
--- NOTE | 2022-03-31 10:41 | PC.NURSE ---
MOHAN MORGAN FROM [facility] CALLS REQUESTING CALL WHEN PATIENT IS ACCEPTED TO SNF/REHAB. CALL BACK NUMBER [phone]
--- NOTE | 2022-03-31 10:47 | MHC.CM.ED ---
Received case management consult ovenight from Dr Castillo. Patient came to the ER due to failure to thrive. Work up essentially negative. Physical therapy eval completed. Short term rehab is recommended. Met with patient in regards to discharge planning. Patient lives alone. Patient was discharged from [facility] on 03/21. VNA was arranged but patient doesn't remember the agency name. HCP verified to be on file. Patient received 2 Pfizer vaccines. Patient agreeable to return to [facility]. Referral made via [facility]. Patient can transfer to [facility] if Covid PCR is negative and when [facility] PASRR Level 2 is obtained. Covid PCR is ordered. Patient was discharged from [facility] with [facility]. T/W submitted for [facility] PASRR Level 2. Continue to monitor for d/c needs.
[2022-03-31 11:34] LABS: Influenza A PCR NEGATIVE (Negative); Influenza B PCR NEGATIVE (Negative); Resp Syncy Virus RNA Qual PCR NEGATIVE (Negative); SARS COV2 PCR INHOUSE NEGATIVE (Negative)
--- NOTE | 2022-03-31 13:28 | PHA.MEDREC ---
Pharmacy Consult ? Medication Reconciliation Pharmacy has completed the medication reconciliation. Med rec completed by RN overnight, updated via claim history
--- NOTE | 2022-03-31 13:31 | MHC.CM.ED ---
Covid PCR is negative. [facility] PASRR Level 2 has been obtained. Patient can leave for [facility] at 5pm. Amanda KEARNEY booked. Med [facility] with chart. Patient, Falguni SPENCER and Brianda AMATO aware. Continue to monitor for d/c needs.
[2022-03-31 15:36] VITALS: BP 107/50; PULSE 86; RESP 16; TEMP 35.9; O2SAT 94
== END 2022-03-31 18:00 | disposition still patient (30) ==
PROVIDERS: Physician Assistant Medical; Emergency Provider Student in an Organized Health Care Education/Training Program; PCP Internal Medicine
DX: F32.A Depression, unspecified (principal); R62.7 Adult failure to thrive; Z68.31 Body mass index [BMI] 31.0-31.9, adult; Z20.822 Contact with and (suspected) exposure to COVID-19; E11.9 Type 2 diabetes mellitus without complications; E78.5 Hyperlipidemia, unspecified; F17.200 Nicotine dependence, unspecified, uncomplicated; Z79.02 Long term (current) use of antithrombotics/antiplatelets; Z79.84 Long term (current) use of oral hypoglycemic drugs; Z79.899 Other long term (current) drug therapy
CPT/HCPCS: 0241U; 71046; 80048; 80076; 80307; 81001; 82077; 83690; 85025; 87635; 93005; 96360; 96361; 97162; 99285

== ENCOUNTER 2022-04-10 12:05 | Outpatient (REF) | payer OTHER, MEDICARE, MEDICAID, SELFPAY ==
--- NOTE | ~2022-04-10 | XR_ITS ---
EXAMINATION: XR SHOULDER, RIGHT CLINICAL INFORMATION: Pain COMPARISON: Right shoulder x-ray 03/06/2022 TECHNIQUE: Two views of the right shoulder. FINDINGS: Mild interval callus formation through impacted fracture of the right humeral head. Humeral head continues to demonstrate acceptable alignment with the glenoid fossa. Acromioclavicular joint is normal in appearance. Visualized right-sided ribs and lung parenchyma are unremarkable. XR/XR shoulder RT min 2V IMPRESSION: Mild interval callus formation through impacted fracture of the right humeral head.
== END 2022-04-10 12:06 | disposition home or self-care (01) ==
LOC: HO.HOSX 12:05
PROVIDERS: Visit Provider Physician Assistant
DX: M25.511 Pain in right shoulder (principal)
CPT/HCPCS: 73030

== ENCOUNTER → 2022-04-10 12:59 | Outpatient (BNVA) | payer MEDICARE, MEDICAID, SELFPAY | PROVIDERS: PCP Internal Medicine; Visit Provider Physician Assistant | DX: S42.201D Unspecified fracture of upper end of right humerus, subsequent encounter for fracture with routine healing (principal) | CPT/HCPCS: 99212 ==

== ENCOUNTER 2022-05-24 08:05 | Outpatient (REF) | payer MEDICARE, MEDICAID, SELFPAY ==
--- NOTE | ~2022-05-24 | XR_ITS ---
EXAMINATION: XR SHOULDER, RIGHT CLINICAL INFORMATION: Right shoulder pain. COMPARISON: April 10, 2022. TECHNIQUE: Two views of the right shoulder. XR/XR shoulder RT min 2V FINDINGS/IMPRESSION: There has been no significant radiographic change compared with April 10, 2022. Examination again demonstrates an impacted fracture of the right humeral head with varus deformity. Findings suggest callus formation, consistent with healing. No new fracture or dislocation is seen. Bony mineralization appears preserved. The acromioclavicular joint appears unremarkable. The visualized right ribs and lung parenchyma appear unremarkable. The aorta is mildly atherosclerotic. There are mild degenerative changes of the spine.
== END 2022-05-24 08:06 | disposition home or self-care (01) ==
LOC: HO.HOSX 08:05
PROVIDERS: Visit Provider Physician Assistant
DX: S42.201D Unspecified fracture of upper end of right humerus, subsequent encounter for fracture with routine healing (principal)
CPT/HCPCS: 73030; 99212

== ENCOUNTER 2022-07-21 13:42 | Outpatient (REF) | payer MEDICARE, MEDICAID, SELFPAY ==
--- NOTE | ~2022-07-21 | CT_ITS ---
EXAMINATION: CT CHEST SCREENING CLINICAL INFORMATION: Nicotine dependence. COMPARISON: Chest 03/30/2022. TECHNIQUE: Multidetector volumetric CT imaging of the chest is performed without contrast using low dose technique. Additional 2D coronal and sagittal reformatted images and axial 3D maximum intensity projection (MIP) images are generated on the CT workstation. This CT examination was performed using dose optimization techniques as appropriate, variously including the following: *Automated exposure control *Adjustment of mA and/or kV according to patient size (this includes techniques or standardized protocols for targeted exams where dose is matched to indication/reason for exam; i.e. extremities or head) *Use of iterative reconstruction technique DLP: 35 mGy-cm FINDINGS: LUNGS: The lungs are hyperinflated and clear of acute pneumonic process. There are no pulmonary nodules, mass or consolidation. MEDIASTINUM: The heart size and great vessels are normal caliber. The central trachea and bronchi are widely patent. Thyroid lobes are symmetrical and normal. Small shotty lymph nodes are seen in the mediastinum. Minimal left pericardial effusion/thickening seen. CORONARY ARTERY CALCIFICATION: Mild coronary artery calcifications are noted. PLEURA: There is no pleural effusion. No pleural mass or thickening. AXILLA: No lymphadenopathy. UPPER ABDOMEN: Visualized liver, spleen, pancreas and bilateral adrenal glands are unremarkable. OSSEOUS STRUCTURES: No aggressive lytic or sclerotic process seen. Mild ventral spondylosis. CT/CT lung screening IMPRESSION: Hyperinflated lungs without acute pneumonic process or pulmonary nodules. ASSESSMENT: Lung-RADS category 1: Negative. RECOMMENDATION: Low-dose annual CT chest.
== END 2022-07-21 13:43 | disposition home or self-care (01) ==
LOC: HO.CT 13:42
PROVIDERS: PCP Internal Medicine; Visit Provider Physician Assistant Medical
DX: F17.210 Nicotine dependence, cigarettes, uncomplicated (principal)
CPT/HCPCS: 71271; G0296

== ENCOUNTER 2022-08-02 14:32 | Outpatient (REF) | payer MEDICARE, MEDICAID, SELFPAY ==
--- NOTE | ~2022-08-02 | MM_ITS ---
EXAMINATION: MM SCREENING DIGITAL BREAST TOMOSYNTHESIS, BILATERAL CLINICAL INFORMATION: Screening. Asymptomatic. The lifetime risk of breast cancer based on the Tyrer-Cuzick Model is 4.1%. COMPARISON: Mammography: July 04, 2021 and studies dating back to October 20, 2011 TECHNIQUE: Digital breast tomosynthesis is performed in both the craniocaudal and mediolateral oblique views along with computer-aided detection (CAD). Synthesized 2D images are generated from the tomosynthesis. FINDINGS: The breasts are almost entirely fatty (ACR BI-RADS breast composition Category a). There are no significant masses, abnormal calcifications, or other abnormalities. MM/MM tomosynthesis screening BI IMPRESSION: No significant changes from prior exam. ASSESSMENT: BI-RADS 1: Negative RECOMMENDATION: Routine annual mammography screening. This patient's information was entered into a reminder system with a target due date for their next mammogram.
== END 2022-08-02 14:33 | disposition home or self-care (01) ==
LOC: HO.MAMMO 14:32
PROVIDERS: PCP Internal Medicine; Visit Provider Internal Medicine
DX: Z12.31 Encounter for screening mammogram for malignant neoplasm of breast (principal)
CPT/HCPCS: 77063; 77067

== ENCOUNTER 2022-08-29 11:05 | Outpatient (REF) | payer MEDICARE, MEDICAID, SELFPAY ==
[2022-08-29 14:07] LABS: Appearance Urine Turbid; Color Urine Yellow; Glucose Urine UA Negative (Negative); Leukocyte Esterase Urine Large (3+) (Negative); Nitrite Urine Positive (Negative); PH 6.5 (5.0-9.0); Specific Gravity - Urine 1.015 (1.005-1.025); UMIC TRIGGER UACC YES; Urine Blood Small (1+) (Negative); Urine Ketones Negative (Negative); Urine Protein 30 (1+) mg/dL (Neg-Trace)
[2022-08-29 14:17] LABS: Bacteria Urine 4+ (None Seen); Hyaline Casts Urine 0-2 /LPF (0-2); RBC Urine 0-2 /HPF (0-2); Squamous Epithelial Cell Urine 0-2 /HPF (0-2); UACC Culture Trigger YES; WBC Urine >50 /HPF (0-5)
== END 2022-08-29 11:06 | disposition home or self-care (01) ==
LOC: HO.HMGCLNP 11:05
PROVIDERS: PCP Internal Medicine; Visit Provider Internal Medicine
DX: R30.0 Dysuria (principal)
CPT/HCPCS: 81001; 81003; 87086; 87088; 87186

== ENCOUNTER 2023-03-08 08:37 | Outpatient (REF) | payer MEDICARE, MEDICAID, SELFPAY ==
[2023-03-08 12:08] LABS: Appearance Urine Clear; Color Urine Yellow; Glucose Urine UA Negative (Negative); Leukocyte Esterase Urine Trace (Negative); Nitrite Urine Negative (Negative); PH 6.5 (5.0-9.0); UMIC TRIGGER UACC YES; Urine Blood Negative (Negative); Urine Ketones Negative (Negative); Urine Protein Negative (Neg-Trace)
[2023-03-08 12:15] LABS: Bacteria Urine None Seen (None Seen); Hyaline Casts Urine 0-2 /LPF (0-2); RBC Urine 0-2 /HPF (0-2); Squamous Epithelial Cell Urine 0-2 /HPF (0-2); UACC Culture Trigger YES
== END 2023-03-08 08:38 | disposition home or self-care (01) ==
LOC: HO.HMGCLDS 08:37
PROVIDERS: PCP Internal Medicine; Visit Provider Internal Medicine
DX: R30.0 Dysuria (principal)
CPT/HCPCS: 81001; 87086

== ENCOUNTER 2023-03-16 12:06 | Outpatient (AMB) | payer MEDICARE, MEDICAID, SELFPAY ==
[2023-03-16 12:09] VITALS: BP 128/86; PULSE 102; O2SAT 98; BMI 30.7
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
== END 2023-03-16 14:57 | disposition home or self-care (01) ==
LOC: HO.HMGC 12:06
PROVIDERS: PCP Internal Medicine; Visit Provider Internal Medicine
DX: E11.9 Type 2 diabetes mellitus without complications (principal); E78.5 Hyperlipidemia, unspecified; J44.9 Chronic obstructive pulmonary disease, unspecified; F32.9 Major depressive disorder, single episode, unspecified
CPT/HCPCS: 99214

== ENCOUNTER 2023-05-14 13:23 | Outpatient (AMB) | payer MEDICARE, MEDICAID, SELFPAY ==
[2023-05-14 13:33] VITALS: BP 118/76; PULSE 102; O2SAT 97; BMI 32.5
--- NOTE | 2023-05-14 13:33 | AM.OFFVISMDC ---
Intake Vital Signs 05/14/23 13:33 Height 5 ft 1 in Weight 172 lb BMI 32.5 BP 118/76 Blood Pressure Location Lt brachial Position Sitting Pulse 102 H Pulse Source Pulse Oximeter Pulse Oximetry (%) 97 Oxygen Delivery Method Room Air Intake Visit Reasons: MARTA G4039/Can have Annual PE Allergies acetaminophen [From PERCOCET] Adverse Reaction (Mild, Verified 05/14/23 13:35) ITCH oxycodone [From PERCOCET] Adverse Reaction (Mild, Verified 05/14/23 13:35) ITCH morphine Adverse Reaction (Unknown, Verified 05/14/23 13:35) pt denies Medication List - Last Reconciled 05/14/23 by Eveline Ortega MD atorvastatin (Lipitor) 80 mg PO DAILY ibuprofen 400 mg PO Q6H PRN loratadine 10 mg PO DAILY lorazepam (Ativan) 0.5 mg PO BEDTIME metformin 500 mg PO BID metoprolol succinate ER 25 mg PO DAILY nut.tx.gluc.intol,lac-free,soy (Glucerna Advance oral liquid) 1 ea PO .qd omeprazole 20 mg PO DAILY oxcarbazepine 300 mg PO DAILY oxcarbazepine 150 mg PO BEDTIME risperidone 1 tab PO DAILY umeclidinium 62.5 mcg/actuation 1 inh inhalation BEDTIME NS HPI MARTA G4039/Can have Annual PE HPI Details Initiated the conversation about Advanced Directives. Advanced Directives help? patients prepare for current and future decisions about their medical treatment? and place of care. Discussed with patient that it is a process where a patients? current condition and prognosis are reviewed, their wishes for information? regarding their illness are elicited, and likely medical dilemmas are presented? and options discussed. The form can be amended as needed, reviewed yearly and? make changes as needed IPPE/AWV ? year old presents? for her ? Annual? Wellness Visit, initial visit.? Medical / Social History Reviewed? Past Medical History ?Yes? . ? [place]? of Care / Care Team list updated ?Yes . ? Surgical/Hospitalization? History ?Yes . ? Current Medications? (including OTC and supplements) ?Yes . ? Family History ?Yes? . ? Tobacco? Control form ?Yes . ? AUDIT-C (Alcohol use) form? ?Yes . ? Illicit drug use in Social? History ?Yes . ? Current diagnosis of? depression? ?No ? Appropriate PHQ2/PHQ9? completed ?Yes . ? Data entered by ?Medical? [place] [facility] Supervisor and reviewed by provider ? Fall Risk ? Fall? History? Have you had any falls with? injury in the past year? ?No . ? Have you had two or more? falls in the past year? ?No . ? Fall Risk Assessment: ?No? falls in the past year . ? HRA filled out by? the patient, reviewed by Provider and scanned. ? IPPE/AWV ? Balance? [place]? ?Yes . ? Tandem? walk ?Yes . ? Walk and? Turn ?Yes . ? Rise from? sit to stand ?Yes . ?Vision? Corrective? lens ?Yes ? Vision? screen ? Up-to-date, has an appointment [] for vision? screening and glaucoma screening ?Hearing? Whisper? test ?pass .? Initiated the conversation about Advanced Directives. Advanced Directives help? patients prepare for current and future decisions about their medical treatment? and place of care. Discussed with patient that it is a process where a patients? current condition and prognosis are reviewed, their wishes for information? regarding their illness are elicited, and likely medical dilemmas are presented? and options discussed. The form can be amended as needed, reviewed yearly and? make changes as needed Written? Plan?Completed. See Patient? Documents. [facility] Medical History (Updated 05/14/23 @ 13:44 by Eveline Ortega MD) Osteopenia (~2006) Nicotine dependence, cigarettes, uncomplicated Closed fracture of right proximal humerus Hoarseness COPD (chronic obstructive pulmonary disease) Onychomycosis Colonoscopy refused GERD (gastroesophageal reflux disease) Hyperlipidemia DM type 2 (diabetes mellitus, type 2) Depression Surgical History History of esophagogastroduodenoscopy (EGD) History of tonsillectomy Social History (Updated 07/21/22 @ 13:35 by Anai Still PA-C) Housing: Apartment Alcohol intake: never Patient Tobacco Use Status: Current everyday Tobacco user Tobacco use type: Cigarette Cigarette Packs Per Day: 1 Cigarettes Per Day: 20 Years Smoked: (onset 15yo, 1ppd x 52yrs, 50pyh) e-Cigarette/Vaping Use: Never Used Advance Directives Date on File: 02/22/22 Current occupational status: disabled Cognitive needs: No Hearing needs: No Vision needs: No Questionnaire Medicare Wellness Checkup What [age] 65-68 What gender do you identify with?: female During the past 4 weeks, how much have you been bothered by emotional problems such as feeling anxious, depressed, irritable, sad or downhearted, and blue?: slightly During the past 4 weeks, has your physical & emotional health limited your social activities with family, friends, neighbors, or groups?: not at all During the past 4 weeks, how much bodily pain have you generally had?: mild pain During the past 4 weeks, was someone available to help you if you needed & wanted help?: yes, as much as I wanted During the past 4 weeks, what was the hardest physical activity you could do for at least 2 minutes?: light Can you get to places out of walking distance without help? (For eg., can you travel alone on buses, taxis or drive your car?): Yes Can you go shopping for groceries or clothes without someone's help?: No Can you prepare your own meals?: Yes Can you do your housework without help?: No Because of any health problems, do you need the help of another person with your personal care needs such as eating, bathing, dressing or getting around the house?: Yes Can you handle your own money without help?: No During the past 4 weeks, how would you rate your health in general?: fair During the past 4 weeks how have things been going for you?: good & bad parts about equal Are you having difficulties driving your car?: not applicable, I don't use a car Do you always fasten your seat belt when you are in a car?: yes, sometimes During past 4 weeks, have you been bothered by the following: never: Falling or dizzy when standing up, Sexual problems?, Trouble eating well?, Teeth or denture problems?, Problems using the telephone? and Tiredness or fatigue? Have you fallen 2 or more times in the past year?: No Are you afraid of falling?: No Are you a smoker?: yes, but I'm not ready to quit During the past 4 weeks, how many drinks of wine, beer, or other alcoholic beverages did you have?: no alcohol at all Do you exercise for about 20 minutes 3 or more times a week?: no, I usually do not exercise this much Have you been given information to help with the following?: yes: Hazards in your house that might hurt you? and yes: Keeping track of your medications? How often do you have trouble taking medicines the way you have been told to take them?: I always take medicine as prescribed How confident are you that you can control & manage most of your health problems?: not very confident What is your race?: White Mini Mental State Exam (MMSE) Orientation What is the (year) (season) (date) (day) (month)?: year, season, date, day and month Registration Name of 3 unrelated objects clearly and slowly, then ask patient to repeat all 3 of them. (1st repeat determines score. Make sure they can repeat all three): object 1, object 2 and object 3 Recall Ask patient to repeat the 3 items from question #3.: object 1, object 2 and object 3 Language Show patient a wristwatch & ask what it is. Repeat for pencil.: watch and pencil Ask the patient to 'take a piece of paper with their right hand' 'fold paper in half' 'place paper on floor': take paper in right hand, fold paper in half and place paper on floor Print the sentence 'CLOSE YOUR EYES' on a piece. If patient actually closes eyes then score.: followed written direction Score Score: 17 Activity of Daily Living Bathing - sponge bath, tub bath or shower: receives no assistance (gets in/out by self, if usual bathing means Dressing - getting clothes from closets & drawers, including inner/outer garments & fasteners.: gets clothes & gets completely dressed without help Toileting - going to the 'toilet room' for urine/bowel elimination & cleaning self/arranging clothes: goes to toilet room, cleans self, arranges clothes without help Transfer: moves in & out of bed and chair without help (may use support object) Continence: controls urination/bowel movements completely by self Feeding: feeds self without help Total Score: 0 Information obtained from: informant Using telephone: needs assistance Traveling: dependent Shopping: dependent Preparing meals: independent Housework: independent Taking medicine: dependent Managing money: dependent PHQ-9 Over the last 2 weeks, how often have you been bothered by any of the following problems? 1. Little interest or pleasure in doing things: nearly every day 2. Feeling down, depressed, or hopeless: several days 3. Trouble falling or staying asleep, or sleeping too much: not at all 4. Feeling tired or having little energy: not at all 5. Poor appetite or overeating: not at all 6. Feeling bad about yourself - or that you are a failure or have let yourself or your family down: not at all 7. Trouble concentrating on things, such as reading the newspaper or watching television: not at all 8. Moving or speaking so slowly that other people could have noticed. Or the opposite - being so fidgety or restless that you have been moving around a lot more than usual: not at all 9. Thoughts that you would be better off or of hurting yourself in some way: not at all Total score: 4 Depression Screening Interpretation: Negative Depression Screening Done: Yes Source: Developed by Drs. Rohith Dangelo, Samantha Villa, Macho Boyce and colleagues, with an educational nikki from [employer]. Review of Systems Const All systems reviewed & are unremarkable except as noted in HPI and below Reports no additional complaints Eyes Reports no additional complaints ENT Reports no additional complaints Card Reports no additional complaints Resp Reports no additional complaints GI Reports no additional complaints Reports no additional complaints Physical Exam Vital Signs: Last Vital Signs Pulse 102 H 05/14/23 13:33 BP 118/76 05/14/23 13:33 Pulse Ox 97 05/14/23 13:33 Oxygen Delivery Method Room Air 05/14/23 13:33 BMI result Body Mass Index 32.5 Const General: no acute distress and poor hygiene HEENT Head: Yes normal to inspection Neck Neck: Yes no lymphadenopathy and Yes supple Resp Effort & Inspection: normal respiratory effort Auscultation: clear to auscultation bilaterally Cardio Rhythm: regular rhythm Heart sounds: S1 normal heart sound present and S2 normal heart sound present GI Inspection: Yes normal to inspection Palpation (GI): Soft to palpation Percussion: Yes normal to percussion Auscultation: normal bowel sounds Extrem Other: DM foot exam:skin intact, monofilament and vibration intact b/l General: Yes no clubbing, cyanosis or edema Assessment & Plan Assessment & Plan (1) DM type 2 (diabetes mellitus, type 2): Code(s): E11.9 - Type 2 diabetes mellitus without complications Plan: ADA DIET, regular exercise, cont med and check A1C today and in 6 months (2) Hyperlipidemia: Code(s): E78.5 - Hyperlipidemia, unspecified Plan: cont statin, check lipid profile (3) COPD (chronic obstructive pulmonary disease): Code(s): J44.9 - Chronic obstructive pulmonary disease, unspecified Plan: cont Incruse, tobacco quitting discussed (4) Colonoscopy refused: Comment: 05/16. Cologuard NEGATIVE Code(s): Z53.20 - Procedure and treatment not carried out because of patient's decision for unspecified reasons Plan: refused colonoscopy (5) Depression: Comment: F/U Dr. Butterfield Code(s): F32.9 - Major depressive disorder, single episode, unspecified Plan: cont meds , f/u with psychiatrist (6) Annual physical exam: Code(s): Z00.00 - Encounter for general adult medical examination without abnormal findings Plan: well balanced diet, weight loss, improving personal hygiene discussed. Orders: Orders Complete Blood Count Auto Diff Today E11.9 - Type 2 diabetes mellitus without complications, E78.5 - Hyperlipidemia, unspecified, J44.9 - Chronic obstructive pulmonary disease, unspecified, Z53.20 - Procedure and treatment not carried out because of patient's decision for unspecified reasons Hemoglobin A1c Today E11.9 - Type 2 diabetes mellitus without complications, E78.5 - Hyperlipidemia, unspecified, J44.9 - Chronic obstructive pulmonary disease, unspecified, Z53.20 - Procedure and treatment not carried out because of patient's decision for unspecified reasons Comprehensive [place]. Panel Fast 6 Months E11.9 - Type 2 diabetes mellitus without complications, E78.5 - Hyperlipidemia, unspecified TSH reflex Free T4 6 Months E11.9 - Type 2 diabetes mellitus without complications, E78.5 - Hyperlipidemia, unspecified Microalbumin, Random (w Creat) 6 Months E11.9 - Type 2 diabetes mellitus without complications, E78.5 - Hyperlipidemia, unspecified Comprehensive Met. Panel Today E11.9 - Type 2 diabetes mellitus without complications, E78.5 - Hyperlipidemia, unspecified Lipid Panel 6 Months E11.9 - Type 2 diabetes mellitus without complications, E78.5 - Hyperlipidemia, unspecified Hemoglobin A1c 6 Months E11.9 - Type 2 diabetes mellitus without complications, E78.5 - Hyperlipidemia, unspecified Medications: New diaper,brief,adult,disposable (Depend Silhouette For Women S/M) As directed 48 ea 5RF fluconazole 150 mg PO Q3D 2 tabs 0RF 2 doses Quality Reporting (2019) Depression/Bipolar (159/160/161/177) PHQ-9: Total score: 4 Coding Level of Care Code Medicare Subsequent (G0439) Diagnoses DM type 2 (diabetes mellitus, type 2) E11.9 Hyperlipidemia E78.5 COPD (chronic obstructive pulmonary disease) J44.9 Colonoscopy refused Z53.20 Depression F32.9 Annual physical exam Z00.00 CPT Codes Advance Care Planning - Time spent: 1-15 minutes, not on file ([id number]) Advance Care Planning Advance Care Planning discussion: Exists, not on file Forms completed: Health Care Proxy Time spent: 1-15 minutes, not on file
== END 2023-05-14 14:14 | disposition home or self-care (01) ==
PROVIDERS: Visit Provider Internal Medicine
DX: Z00.00 Encounter for general adult medical examination without abnormal findings (principal); E11.9 Type 2 diabetes mellitus without complications; J44.9 Chronic obstructive pulmonary disease, unspecified; F32.9 Major depressive disorder, single episode, unspecified; E78.5 Hyperlipidemia, unspecified; Z53.20 Procedure and treatment not carried out because of patient's decision for unspecified reasons
CPT/HCPCS: 1124F; G0439

== ENCOUNTER 2023-05-14 14:01 | Outpatient (REF) | payer MEDICARE, MEDICAID, SELFPAY ==
[2023-05-14 16:05] LABS: MANUAL DIFF FLAG NO
[2023-05-14 16:19] LABS: Alanine Aminotransferase 9 U/L (0-31); Albumin Level 4.2 g/dL (3.5-5.0); Alkaline Phosphatase 130 U/L (39-117); Anion Gap 9 (12-20); Aspartate Amino Transferase 11 U/L (5-31); Bilirubin Total 0.4 mg/dL (0.0-1.0); Blood Urea Nitrogen 19 mg/dL (9-16); Calcium 9.5 mg/dL (8.4-10.2); Carbon Dioxide 31 mmol/L (22-29); Chloride 105 mmol/L (96-108); Estimated Glomerular Filt Rate > 60; Glucose Random 107 mg/dL (60-115); Potassium 4.3 mmol/L (3.3-5.1); Sodium 141 mmol/L (135-145); Total Protein 8.2 g/dL (6.5-8.0)
[2023-05-14 16:23] LABS: Basophils Absolute Auto 0.1 X10*3/uL (0.0-0.2); Basophils Percent Auto 1.1 % (0-2); Eosinophils Percent Auto 0.5 % (0-4); Estimated Average Glucose 128 mg/dL; Hematocrit 39.5 % (37.0-47.0); Hemoglobin 12.4 g/dl (12.0-16.0); Hemoglobin A1c % 6.1 % (<6.0); Imm Gran Abs Auto 0.04 X10*3/uL (0.00-0.03); Imm Gran Pct Auto 0.7 % (0.0-0.4); Lymphocytes Absolute Auto 1.6 X10*3/uL (1.2-4.9); Lymphocytes Percent Auto 28.6 % (20-40); Mean Corpuscular HGB Conc 31.4 g/dl (31.0-35.0); Mean Corpuscular Volume 82.8 fL (80.0-98.0); Mean Platelet Volume 9.5 fL (9.4-12.3); Monocytes Absolute Auto 0.5 X10*3/uL (0.1-1.2); Monocytes Percent Auto 9.1 % (2-11); Neutrophils Absolute Auto 3.4 x10*3/uL (2.0-8.3); Platelet Count 228 X10*3/uL (160-400); Red Blood Count 4.77 X10*6/uL (4.20-5.50); White Blood Count 5.7 X10*3/uL (4.8-10.8)
== END 2023-05-14 14:02 | disposition home or self-care (01) ==
LOC: HO.HMGCLDS 14:01
PROVIDERS: PCP Internal Medicine; Visit Provider Internal Medicine
DX: E11.9 Type 2 diabetes mellitus without complications (principal); E78.5 Hyperlipidemia, unspecified; J44.9 Chronic obstructive pulmonary disease, unspecified; Z53.20 Procedure and treatment not carried out because of patient's decision for unspecified reasons
CPT/HCPCS: 36415; 80053; 83036; 85025

== ENCOUNTER 2023-07-19 13:33 | Outpatient (AMB) | payer MEDICARE, MEDICAID, SELFPAY ==
--- NOTE | 2023-07-19 14:00 | MHC.PC.OV ---
Vital Signs 07/19/23 14:01 Height 5 ft 1 in Weight 181 lb BMI 34.2 BP 142/96 H Blood Pressure Location Lt brachial Position Sitting Pulse 104 H Pulse Source Pulse Oximeter Pulse Oximetry (%) 98 Oxygen Delivery Method Room Air Intake Visit Reasons: Wax build up in both ears Intake Note: Pt is here today for a sick visit. Pt c/o blocked ears. Allergies acetaminophen [From PERCOCET] Adverse Reaction (Mild, Verified 07/19/23 14:08) ITCH oxycodone [From PERCOCET] Adverse Reaction (Mild, Verified 07/19/23 14:08) ITCH morphine Adverse Reaction (Unknown, Verified 07/19/23 14:08) pt denies Medication List - Last Reconciled 07/19/23 by Eveline Ortega MD atorvastatin (Lipitor) 80 mg PO DAILY diaper,brief,adult,disposable (Depend Silhouette For Women S/M) As directed fluconazole 150 mg PO Q3D 2 doses ibuprofen 400 mg PO Q6H PRN loratadine 10 mg PO DAILY lorazepam (Ativan) 0.5 mg PO BEDTIME metformin 500 mg PO BID metoprolol succinate ER 25 mg PO DAILY nut.tx.gluc.intol,lac-free,soy (Glucerna Advance oral liquid) 1 ea PO .qd omeprazole 20 mg PO DAILY oxcarbazepine 300 mg PO DAILY oxcarbazepine 150 mg PO BEDTIME risperidone 1 tab PO DAILY umeclidinium 62.5 mcg/actuation 1 inh inhalation BEDTIME NS Tobacco use date assessed: 07/19/23 Fall risk assessment: No Falls in past year Last assessed Fall Risk: 07/19/23 Dental Screening Dental Screen Date: 07/19/23 Did you have a dental visit in the last 12 months?: No Did you have a dental problem in the last 6 months where you did not have access to dental care?: No Was dental information given to patient?: Patient declined HPI Wax build up in both ears HPI Details Patient presents complaining of decreased hearing in both ears and was noted to have cerumen buildup. Hyperlipidemia type 2 diabetes are stable on current medications. [facility] Medical History Osteopenia (~2006) Nicotine dependence, cigarettes, uncomplicated Closed fracture of right proximal humerus Hoarseness COPD (chronic obstructive pulmonary disease) Onychomycosis Colonoscopy refused GERD (gastroesophageal reflux disease) Hyperlipidemia DM type 2 (diabetes mellitus, type 2) Depression Surgical History History of esophagogastroduodenoscopy (EGD) History of tonsillectomy Social History Housing: Apartment Alcohol intake: never Patient Tobacco Use Status: Current everyday Tobacco user Tobacco use type: Cigarette Cigarette Packs Per Day: 1 Cigarettes Per Day: 20 Years Smoked: (onset 15yo, 1ppd x 52yrs, 50pyh) Packs Per Year: 0 Packs per year/per ci.00 e-Cigarette/Vaping Use: Never Used Advance Directives Date on File: 02/22/22 Current occupational status: disabled Cognitive needs: No Hearing needs: No Vision needs: No Questionnaire PHQ-9 Over the last 2 weeks, how often have you been bothered by any of the following problems? 1. Little interest or pleasure in doing things: not at all 2. Feeling down, depressed, or hopeless: not at all 3. Trouble falling or staying asleep, or sleeping too much: not at all 4. Feeling tired or having little energy: not at all 5. Poor appetite or overeating: not at all 6. Feeling bad about yourself - or that you are a failure or have let yourself or your family down: not at all 7. Trouble concentrating on things, such as reading the newspaper or watching television: not at all 8. Moving or speaking so slowly that other people could have noticed. Or the opposite - being so fidgety or restless that you have been moving around a lot more than usual: not at all 9. Thoughts that you would be better off or of hurting yourself in some way: not at all Total score: 0 Depression Screening Interpretation: Negative Depression Screening Done: Yes Source: Developed by Drs. Rohith Dangelo, Samantha Villa, Macho Boyce and colleagues, with an educational nikki from [employer]. Thrive Questionnaire Date Thrive assessed: 07/19/23 I am a: Patient What is your living situation today?: I have a steady place to live Within the past 12 months, did the food you bought not last and you didn't have the money to get more?: Never true Within the past 12 months, did you worry whether your food would run out before you got money to buy more?: Never true Do you have trouble paying for medicines?: No Do you have trouble getting transportation to medical appointments?: No Do you have trouble paying your heating and electricity bill?: No Do you have trouble taking care of your child, family member or friend?: No Do you have trouble with day-to-day activities such as bathing, preparing meals, shopping, managing finances, etc.?: No Are you currently unemployed and looking for a job?: No Are you interested in more education?: No Please select the resources that you would like help with: None Currently or been in a relationship where the following occur: no concerns reported THRIVE Score: 0 AUDIT C Alcohol Use Questionnaire (AUDIT-C) 1. How often do you have a drink containing alcohol?: Never 3. How often do you have six or more drinks on one occasion?: Never Total Score: 0 ANTHONY-7 AMB Questionnaire ANTHONY-7 Date ANTHONY - 7 assessed: 07/19/23 Feeling nervous, anxious, or on edge: 0 = Not at all Not being able to stop or control worryin = Not at all Worrying too much about different things: 0 = Not at all Trouble relaxin = Not at all Being so restless that it is hard to sit still: 0 = Not at all Becoming easily annoyed or irritable: 0 = Not at all Feeling afraid as if something awful might happen: 0 = Not at all Total ANTHONY-7 score (0-4 normal; 5-9 mild; 10-14 moderate; 15-21 severe): 0 Source: Developed by Drs. Rohith Dangelo, Samantha Vilal, Macho Boyce and colleagues, with an educational nikki from [employer]. Review of Systems Const Reports no additional complaints Eyes Reports no additional complaints ENT Reports no additional complaints Card Reports no additional complaints Resp Reports no additional complaints GI Reports no additional complaints Reports no additional complaints Physical exam (Primary Care) Vital Signs: Last Vital Signs Pulse 104 H 07/19/23 14:01 BP 142/96 H 07/19/23 14:01 Pulse Ox 98 07/19/23 14:01 Oxygen Delivery Method Room Air 07/19/23 14:01 BMI result Body Mass Index 34.2 Tobacco/Smoking Status: Tobacco use Status Tobacco use date assessed 07/19/23 07/19/23 14:03 Patient Tobacco Use Status Current everyday Tobacco 07/19/23 14:01 Tobacco use type Cigarette 07/19/23 14:01 e-Cigarette/Vaping Use Never Used 07/19/23 14:01 PHQ-9: PHQ-9 Score PHQ-9: Total score 0 07/19/23 14:38 Depression Screening Interpretation: Negative Thrive Assessment: Date of Thrive Assessment Date Thrive assessed 07/19/23 07/19/23 14:12 Currently or been in a relationship where the following occur: no concerns reported Const General: no acute distress HENMT Head: Yes normal to inspection Ears: unable to visualize TM (Cerumen bilaterally) Face and sinus: Yes normal facial exam Neck Neck: Yes no lymphadenopathy Resp Effort & Inspection: normal respiratory effort Auscultation: clear to auscultation bilaterally Cardio Rhythm: regular rhythm Heart sounds: S1 normal heart sound present and S2 normal heart sound present Assessment and Plan Assessment & Plan (1) Excessive cerumen in both ear canals: Code(s): H61.23 - Impacted cerumen, bilateral Plan: Ear lavage done (2) HTN (hypertension): Code(s): I10 - Essential (primary) hypertension Plan: Increase metoprolol to 50 mg a day Medications: New metoprolol succinate ER 50 mg PO DAILY 90 tabs 2RF Refilled diaper,brief,adult,disposable (Depend Silhouette For Women S/M) As directed 100 ea 5RF diaper,brief,adult,disposable (Depend Silhouette For Women S/M) As directed 100 ea 5RF Discontinued metoprolol succinate ER Discontinued Reason: Duplicate 25 mg PO DAILY 90 tabs 3RF Coding Level of Care Code Est Pt Level 3 (12615) Diagnoses Excessive cerumen in both ear canals H61.23 HTN (hypertension) I10
[2023-07-19 14:01] VITALS: BP 142/96; PULSE 104; O2SAT 98; BMI 34.2
== END 2023-07-19 15:44 | disposition home or self-care (01) ==
PROVIDERS: PCP Internal Medicine; Visit Provider Internal Medicine
DX: H61.23 Impacted cerumen, bilateral (principal); I10 Essential (primary) hypertension
CPT/HCPCS: 99213

== ENCOUNTER → 2023-07-26 23:59 | Outpatient (BNV) | payer MEDICARE, MEDICAID, SELFPAY | PROVIDERS: PCP Internal Medicine; Visit Provider Internal Medicine | DX: F41.9 Anxiety disorder, unspecified (principal); J44.9 Chronic obstructive pulmonary disease, unspecified; E11.9 Type 2 diabetes mellitus without complications | CPT/HCPCS: G0179 ==

== ENCOUNTER 2023-11-15 12:18 | Outpatient (AMB) | payer MEDICARE, MEDICAID, SELFPAY ==
--- NOTE | 2023-11-15 12:21 | A.OFFPC_ITS ---
Vital Signs 11/15/23 12:24 Height 5 ft 1 in Weight 192 lb BMI 36.3 BP 132/82 Blood Pressure Location Rt brachial Position Sitting Pulse 99 Pulse Source Pulse Oximeter Pulse Oximetry (%) 95 Oxygen Delivery Method Room Air Intake Visit Reasons: Nicotine patch/medical clearance to drive. Intake Note: pt is here for nicotine patches and wants clearance to drive Allergies acetaminophen [From PERCOCET] Adverse Reaction (Mild, Verified 11/15/23 12:25) ITCH oxycodone [From PERCOCET] Adverse Reaction (Mild, Verified 11/15/23 12:25) ITCH morphine Adverse Reaction (Unknown, Verified 11/15/23 12:25) pt denies Medication List - Last Reconciled 11/15/23 by Eveline Ortega MD atorvastatin (Lipitor) 80 mg PO DAILY diaper,brief,adult,disposable (Depend Silhouette For Women S/M) As directed ibuprofen 400 mg PO Q6H PRN loratadine 10 mg PO DAILY lorazepam (Ativan) 0.5 mg PO BEDTIME metformin 500 mg PO BID metoprolol succinate ER 75 mg (1.5 x 50 mg) PO DAILY nut.tx.gluc.intol,lac-free,soy (Glucerna Advance oral liquid) 1 ea PO .qd omeprazole 20 mg PO DAILY oxcarbazepine 300 mg PO DAILY oxcarbazepine 150 mg PO BEDTIME risperidone 1 tab PO DAILY umeclidinium 62.5 mcg/actuation 1 inh inhalation BEDTIME NS Tobacco use date assessed: 07/19/23 Fall risk assessment: No Falls in past year Last assessed Fall Risk: 11/15/23 Dental Screening Dental Screen Date: 07/19/23 HPI Nicotine patch/medical clearance to drive. HPI Details Patient presents for the follow-up of hypertension hyperlipidemia type 2 diabetes chronic depression. She needs a referral to Physical Medicine for driving competency. Patient complains of vaginal itching but denies discharge. She was prescribed antifungal cream which was not helpful. Patient denies dysuria urinary frequency but has chronic urinary incontinence and wears depends. [facility] Medical History DM type 2 (diabetes mellitus, type 2) HTN (hypertension) Hyperlipidemia GERD (gastroesophageal reflux disease) COPD (chronic obstructive pulmonary disease) Nicotine dependence, cigarettes, uncomplicated Osteopenia (~2006) Depression Closed fracture of right proximal humerus Hoarseness Onychomycosis Colonoscopy refused Surgical History History of esophagogastroduodenoscopy (EGD) History of tonsillectomy Social History Housing: Apartment Alcohol intake: never Patient Tobacco Use Status: Current everyday Tobacco user Tobacco use type: Cigarette Cigarette Packs Per Day: 1 Cigarettes Per Day: 20 Years Smoked: (onset 15yo, 1ppd x 52yrs, 50pyh) e-Cigarette/Vaping Use: Never Used Advance Directives Date on File: 02/22/22 Current occupational status: disabled Cognitive needs: No Hearing needs: No Vision needs: No Questionnaire Thrive Questionnaire Date Thrive assessed: 07/19/23 ANTHONY-7 AMB Questionnaire ANTHONY-7 Date ANTHONY - 7 assessed: 07/19/23 Source: Developed by Drs. Rohith Dangelo, Samatnha Villa, Macho Boyce and colleagues, with an educational nikki from [employer]. Review of Systems Const All systems reviewed & are unremarkable except as noted in HPI and below Eyes Reports no additional complaints ENT Reports no additional complaints Card Reports no additional complaints Resp Reports no additional complaints GI Reports no additional complaints Reports no additional complaints Physical exam (Primary Care) Vital Signs: Last Vital Signs Pulse 99 11/15/23 12:24 BP 132/82 11/15/23 12:24 Pulse Ox 95 11/15/23 12:24 Oxygen Delivery Method Room Air 11/15/23 12:24 BMI result Body Mass Index 36.3 Tobacco/Smoking Status: Tobacco use Status Tobacco use date assessed 07/19/23 11/15/23 12:22 Patient Tobacco Use Status Current everyday Tobacco 11/15/23 12:22 Tobacco use type Cigarette 11/15/23 12:22 e-Cigarette/Vaping Use Never Used 11/15/23 12:22 Thrive Assessment: Date of Thrive Assessment Date Thrive assessed 07/19/23 11/15/23 12:22 Const General: no acute distress Resp Effort & Inspection: normal respiratory effort Auscultation: diminished lung sounds Cardio Rhythm: regular rhythm Heart sounds: S1 normal heart sound present and S2 normal heart sound present GI Inspection: Yes normal to inspection Palpation (GI): Soft to palpation Percussion: Yes normal to percussion Auscultation: normal bowel sounds Assessment and Plan Assessment & Plan (1) Encounter for competency evaluation: Code(s): Z01.89 - Encounter for other specified special examinations Plan: Referred to physical medicine at [facility] (2) HTN (hypertension): Code(s): I10 - Essential (primary) hypertension Plan: Continue current medications (3) DM type 2 (diabetes mellitus, type 2): Code(s): E11.9 - Type 2 diabetes mellitus without complications Plan: ADA diet increase physical activity continue metformin, patient will have a fasting blood work today (4) COPD (chronic obstructive pulmonary disease): Code(s): J44.9 - Chronic obstructive pulmonary disease, unspecified Plan: Continue Spiriva and tobacco quitting discussed with the patient (5) Vaginitis: Code(s): N76.0 - Acute vaginitis Plan: Patient will self swab for BV and candidiasis Orders: Orders Hemoglobin A1c 6 Months E11.9 - Type 2 diabetes mellitus without complications, I10 - Essential (primary) hypertension, J44.9 - Chronic obstructive pulmonary disease, unspecified Lipid Panel 6 Months E11.9 - Type 2 diabetes mellitus without complications, I10 - Essential (primary) hypertension, J44.9 - Chronic obstructive pulmonary disease, unspecified Comprehensive [place]. Panel Fast 6 Months E11.9 - Type 2 diabetes mellitus without complications, I10 - Essential (primary) hypertension, J44.9 - Chronic obstructive pulmonary disease, unspecified Referrals Physical Medicine and Rehabilitation Referral Z - Encounter for other specified special examinations Medications: New diaper,brief,adult,disposable (Depend Silhouette For Women L/XL) As directed 120 ea 3RF nicotine (polacrilex) 4 mg buccal Q2H 100 ea 2RF Coding Level of Care Code Est Pt Level 4 (13545) Diagnoses Encounter for competency evaluation Z HTN (hypertension) I10 DM type 2 (diabetes mellitus, type 2) E11.9 COPD (chronic obstructive pulmonary disease) J44.9 Vaginitis N76.0
[2023-11-15 12:24] VITALS: BP 132/82; PULSE 99; O2SAT 95; BMI 36.3
== END 2023-11-15 13:08 | disposition home or self-care (01) ==
PROVIDERS: PCP Internal Medicine; Visit Provider Internal Medicine
DX: E11.9 Type 2 diabetes mellitus without complications (principal); J44.9 Chronic obstructive pulmonary disease, unspecified; Z01.89 Encounter for other specified special examinations; I10 Essential (primary) hypertension; N76.0 Acute vaginitis
CPT/HCPCS: 99214

== ENCOUNTER 2023-11-15 15:15 | Outpatient (REF) | payer MEDICARE, MEDICAID, SELFPAY ==
[2023-11-16 11:10] LABS: Bacterial Vaginosis PCR NEGATIVE (Negative); Candida Group PCR NOT DETECTED (Not Detect); Candida glab krusei PCR NOT DETECTED (Not Detect); Trichomonas vaginalis PCR NOT DETECTED (Not Detect)
== END 2023-11-15 15:16 | disposition home or self-care (01) ==
LOC: HO.LAB 15:15
PROVIDERS: Visit Provider Internal Medicine
DX: Z13.9 Encounter for screening, unspecified (principal)
CPT/HCPCS: 0352U

== ENCOUNTER 2024-05-26 09:01 | Outpatient (AMB) | payer MEDICARE, MEDICAID, SELFPAY ==
[2024-05-26 09:12] VITALS: BP 110/74; PULSE 90; O2SAT 96; BMI 34.6
--- NOTE | 2024-05-26 09:12 | A.OFFVIS_ITS ---
Intake Vital Signs 05/26/24 09:12 Height 5 ft 1 in Weight 183 lb BMI 34.6 BP 110/74 Blood Pressure Location Rt brachial Position Sitting Pulse 90 Pulse Source Pulse Oximeter Pulse Oximetry (%) 96 Oxygen Delivery Method Room Air Intake Visit Reasons: SWV G0439 Allergies acetaminophen [From PERCOCET] Adverse Reaction (Mild, Verified 05/26/24 09:14) ITCH oxycodone [From PERCOCET] Adverse Reaction (Mild, Verified 05/26/24 09:14) ITCH morphine Adverse Reaction (Unknown, Verified 05/26/24 09:14) pt denies Medication List - Last Reconciled 05/26/24 by Eveline Ortega MD atorvastatin (Lipitor) 80 mg PO DAILY diaper,brief,adult,disposable (Depend Silhouette For Women L/XL) Pullups, size XL fluconazole 150 mg PO Q3D 2 doses ibuprofen 400 mg PO Q6H PRN loratadine 10 mg PO DAILY lorazepam (Ativan) 0.5 mg PO BEDTIME metformin 500 mg PO BID metoprolol succinate ER 75 mg (1.5 x 50 mg) PO DAILY nicotine (polacrilex) 4 mg buccal Q2H nut.tx.gluc.intol,lac-free,soy (Glucerna Advance oral liquid) 1 ea PO .qd omeprazole 20 mg PO DAILY oxcarbazepine 300 mg PO DAILY oxcarbazepine 150 mg PO BEDTIME risperidone 1 tab PO DAILY Spiriva Respimat 2.5 mcg/actuation (tiotropium bromide) 2 inhalations inhalation QAM NS umeclidinium 62.5 mcg/actuation 1 inh inhalation BEDTIME NS HPI SWV [id number] HPI Details Initiated the conversation about Advanced Directives. Advanced Directives help? patients prepare for current and future decisions about their medical treatment? and place of care. Discussed with patient that it is a process where a patients? current condition and prognosis are reviewed, their wishes for information? regarding their illness are elicited, and likely medical dilemmas are presented? and options discussed. The form can be amended as needed, reviewed yearly and? make changes as needed IPPE/AWV ? year old presents? for her ? Annual? Wellness Visit, initial visit.? Medical / Social History Reviewed? Past Medical History ?Yes? . ? [place]? of Care / Care Team list updated ?Yes . ? Surgical/Hospitalization? History ?Yes . ? Current Medications? (including OTC and supplements) ?Yes . ? Family History ?Yes? . ? Tobacco? Control form ?Yes . ? AUDIT-C (Alcohol use) form? ?Yes . ? Illicit drug use in Social? History ?Yes . ? Current diagnosis of? depression? ?No ? Appropriate PHQ2/PHQ9? completed ?Yes . ? Data entered by ?Medical? [employer] and reviewed by provider ? Fall Risk ? Fall? History? Have you had any falls with? injury in the past year? ?No . ? Have you had two or more? falls in the past year? ?No . ? Fall Risk Assessment: ?No? falls in the past year . ? HRA filled out by? the patient, reviewed by Provider and scanned. ? IPPE/AWV ? Balance? [place]? ?Yes . ? Tandem? walk ?Yes . ? Walk and? Turn ?Yes . ? Rise from? sit to stand ?Yes . ?Vision? Corrective? lens ?Yes ? Vision? screen ? Up-to-date, has an appointment [] for vision? screening and glaucoma screening ?Hearing? Whisper? test ?pass .? Initiated the conversation about Advanced Directives. Advanced Directives help? patients prepare for current and future decisions about their medical treatment? and place of care. Discussed with patient that it is a process where a patients? current condition and prognosis are reviewed, their wishes for information? regarding their illness are elicited, and likely medical dilemmas are presented? and options discussed. The form can be amended as needed, reviewed yearly and? make changes as needed Written? Plan?Completed. See Patient? Documents. [facility] Medical History (Updated 05/26/24 @ 09:53 by Eveline Ortega MD) Annual physical exam DM type 2 (diabetes mellitus, type 2) HTN (hypertension) Hyperlipidemia GERD (gastroesophageal reflux disease) COPD (chronic obstructive pulmonary disease) Nicotine dependence, cigarettes, uncomplicated Osteopenia (~2006) Depression Closed fracture of right proximal humerus Hoarseness Onychomycosis Colonoscopy refused Surgical History History of esophagogastroduodenoscopy (EGD) History of tonsillectomy Social History Housing: Apartment Alcohol intake: never Patient Tobacco Use Status: Current everyday Tobacco user Tobacco use type: Cigarette Cigarette Packs Per Day: 1 Cigarettes Per Day: 20 Years Smoked: (onset 15yo, 1ppd x 52yrs, 50pyh) e-Cigarette/Vaping Use: Never Used Advance Directives Date on File: 02/22/22 Current occupational status: disabled Cognitive needs: No Hearing needs: No Vision needs: No Questionnaire Medicare Wellness Checkup [age] What gender do you identify with?: female During the past 4 weeks, how much have you been bothered by emotional problems such as feeling anxious, depressed, irritable, sad or downhearted, and blue?: not at all During the past 4 weeks, has your physical & emotional health limited your social activities with family, friends, neighbors, or groups?: not at all During the past 4 weeks, how much bodily pain have you generally had?: very mild pain During the past 4 weeks, was someone available to help you if you needed & wanted help?: yes, some During the past 4 weeks, what was the hardest physical activity you could do for at least 2 minutes?: very light Can you get to places out of walking distance without help? (For eg., can you travel alone on buses, taxis or drive your car?): Yes Can you go shopping for groceries or clothes without someone's help?: Yes Can you prepare your own meals?: Yes Can you do your housework without help?: Yes Because of any health problems, do you need the help of another person with your personal care needs such as eating, bathing, dressing or getting around the house?: Yes Can you handle your own money without help?: No During the past 4 weeks, how would you rate your health in general?: good During the past 4 weeks how have things been going for you?: pretty well Are you having difficulties driving your car?: not applicable, I don't use a car Do you always fasten your seat belt when you are in a car?: yes, sometimes During past 4 weeks, have you been bothered by the following: never: Falling or dizzy when standing up, Sexual problems?, Trouble eating well?, Teeth or denture problems? and Problems using the telephone? and sometimes: Tiredness or fatigue? Have you fallen 2 or more times in the past year?: No Are you afraid of falling?: No Are you a smoker?: yes, and I might quit During the past 4 weeks, how many drinks of wine, beer, or other alcoholic beverages did you have?: no alcohol at all Do you exercise for about 20 minutes 3 or more times a week?: no, I usually do not exercise this much Have you been given information to help with the following?: no: Hazards in your house that might hurt you? and no: Keeping track of your medications? How often do you have trouble taking medicines the way you have been told to take them?: I always take medicine as prescribed How confident are you that you can control & manage most of your health problems?: somewhat confident What is your race?: White Mini Mental State Exam (MMSE) Orientation What is the (year) (season) (date) (day) (month)?: year, season, date, day and month Where are we (state) (county) (town or city) (hospital) (floor)?: state, county, town or city, hospital/clinic and floor Registration Name of 3 unrelated objects clearly and slowly, then ask patient to repeat all 3 of them. (1st repeat determines score. Make sure they can repeat all three): object 1, object 2 and object 3 Recall Ask patient to repeat the 3 items from question #3.: object 1, object 2 and object 3 Language Show patient a wristwatch & ask what it is. Repeat for pencil.: watch and pencil Ask the patient to repeat the phrase 'No ifs, ands, or buts' after you.: correct Print the sentence 'CLOSE YOUR EYES' on a piece. If patient actually closes eyes then score.: followed written direction Score Score: 20 PHQ-9 Over the last 2 weeks, how often have you been bothered by any of the following problems? 1. Little interest or pleasure in doing things: more than half the days 2. Feeling down, depressed, or hopeless: several days 3. Trouble falling or staying asleep, or sleeping too much: not at all 4. Feeling tired or having little energy: not at all 5. Poor appetite or overeating: not at all 6. Feeling bad about yourself - or that you are a failure or have let yourself or your family down: not at all 7. Trouble concentrating on things, such as reading the newspaper or watching television: several days 8. Moving or speaking so slowly that other people could have noticed. Or the opposite - being so fidgety or restless that you have been moving around a lot more than usual: several days 9. Thoughts that you would be better off or of hurting yourself in some way: several days Total score: 6 Depression Screening Interpretation: Negative Depression Screening Done: Yes 15119 - PHQ-9 Billing: Yes Source: Developed by Drs. Rohith Dangelo, Samantha Villa, Macho Boyce and colleagues, with an educational nikki from [employer]. Review of Systems Const All systems reviewed & are unremarkable except as noted in HPI and below Eyes Reports no additional complaints ENT Reports no additional complaints Card Reports no additional complaints Resp Reports no additional complaints GI Reports no additional complaints Reports no additional complaints Physical Exam Vital Signs: Last Vital Signs Pulse 121 H 05/26/24 09:12 BP 110/74 05/26/24 09:12 Pulse Ox 96 05/26/24 09:12 Oxygen Delivery Method Room Air 05/26/24 09:12 BMI result Body Mass Index 34.6 Const General: no acute distress HEENT Head: Yes normal to inspection Ears: hearing grossly normal bilaterally Neck Neck: Yes no lymphadenopathy and Yes supple Resp Effort & Inspection: normal respiratory effort Auscultation: clear to auscultation bilaterally Cardio Rhythm: regular rhythm Heart sounds: S1 normal heart sound present and S2 normal heart sound present GI Inspection: Yes normal to inspection Palpation (GI): Soft to palpation Percussion: Yes normal to percussion Auscultation: normal bowel sounds Extrem General: Yes no clubbing, cyanosis or edema Assessment & Plan Assessment & Plan (1) Urinary incontinence: Code(s): R32 - Unspecified urinary incontinence Plan: pt uses bed pads and diapers (2) DM type 2 (diabetes mellitus, type 2): Code(s): E11.9 - Type 2 diabetes mellitus without complications Plan: Check A1c today. Continue metformin ADA diet increase physical activity and blood glucose monitoring discussed with the patient (3) Hyperlipidemia: Code(s): E78.5 - Hyperlipidemia, unspecified Plan: Continue statin (4) COPD (chronic obstructive pulmonary disease): Code(s): J44.9 - Chronic obstructive pulmonary disease, unspecified Plan: Continue Spiriva and tobacco quitting discussed with the patient (5) Nicotine dependence, cigarettes, uncomplicated: Comment: (current smoker - onset 15yo, 1ppd x 52yrs, 50pyh) Code(s): F17.210 - Nicotine dependence, cigarettes, uncomplicated Plan: Tobacco quitting discussed with the patient she is established with lung cancer screening program (6) Colonoscopy refused: Comment: 05/16. Cologuard NEGATIVE Code(s): Z53.20 - Procedure and treatment not carried out because of patient's decision for unspecified reasons Plan: Due for repeat Cologuard next year (7) Annual physical exam: Code(s): Z00.00 - Encounter for general adult medical examination without abnormal findings Plan: Well-balanced diet regular physical activity discussed with the patient she is up-to-date with the mammogram, follow-up in 6 months with a fasting labs before Orders: Orders Comprehensive [place]. Panel Fast Today E11.9 - Type 2 diabetes mellitus without complications, E78.5 - Hyperlipidemia, unspecified, F17.210 - Nicotine dependence, cigarettes, uncomplicated, J44.9 - Chronic obstructive pulmonary disease, unspecified Microalbumin, Random (w Creat) Today E11.9 - Type 2 diabetes mellitus without complications, E78.5 - Hyperlipidemia, unspecified, F17.210 - Nicotine dependence, cigarettes, uncomplicated, J44.9 - Chronic obstructive pulmonary disease, unspecified Complete Blood Count Auto Diff Today E11.9 - Type 2 diabetes mellitus without complications, E78.5 - Hyperlipidemia, unspecified, F17.210 - Nicotine dependence, cigarettes, uncomplicated, J44.9 - Chronic obstructive pulmonary disease, unspecified Lipid Panel Today E11.9 - Type 2 diabetes mellitus without complications, E78.5 - Hyperlipidemia, unspecified, F17.210 - Nicotine dependence, cigarettes, uncomplicated, J44.9 - Chronic obstructive pulmonary disease, unspecified Hemoglobin A1c Today E11.9 - Type 2 diabetes mellitus without complications, E78.5 - Hyperlipidemia, unspecified, F17.210 - Nicotine dependence, cigarettes, uncomplicated, J44.9 - Chronic obstructive pulmonary disease, unspecified TSH reflex Free T4 Today E11.9 - Type 2 diabetes mellitus without complica tions, E78.5 - Hyperlipidemia, unspecified, F17.210 - Nicotine dependence, cigarettes, uncomplicated, J44.9 - Chronic obstructive pulmonary disease, unspecified Medications: New fluconazole 150 mg PO Q3D 2 tabs 2RF nicotine (polacrilex) 2 mg buccal Q8H PRN 108 ea 1RF nicotine cravings disposable gloves 3 x a day 100 ea 3RF [bed pads] 1 3 times daily; 100 pad 1RF incontinence R32 - Unspecified urinary incontinence Discontinued umeclidinium 62.5 mcg/actuation Discontinued Reason: Doctor's Order 1 inh inhalation BEDTIME 30 ea 5RF NS Quality Reporting (2019) Depression/Bipolar (159/160/161/177) PHQ-9: Total score: 6 Coding Level of Care Code Medicare Subsequent (G0439) Diagnoses Urinary incontinence R32 DM type 2 (diabetes mellitus, type 2) E11.9 Hyperlipidemia E78.5 COPD (chronic obstructive pulmonary disease) J44.9 Nicotine dependence, cigarettes, uncomplicated F17.210 Colonoscopy refused Z53.20 Annual physical exam Z00.00 CPT Codes Advance Care Planning - Time spent: 1-15 minutes, on File ([id number]) Additional Codes PHQ-9 - 36519 - PHQ-9 Billing: Yes ([id number]) Advance Care Planning Forms completed: Health Care Proxy Time spent: 1-15 minutes, on File Did not discuss due to Cultural/Spiritual beliefs: Yes
== END 2024-05-26 09:54 | disposition home or self-care (01) ==
PROVIDERS: PCP Internal Medicine; Visit Provider Internal Medicine
DX: Z00.00 Encounter for general adult medical examination without abnormal findings (principal); E11.9 Type 2 diabetes mellitus without complications; J44.9 Chronic obstructive pulmonary disease, unspecified; R32 Unspecified urinary incontinence; E78.5 Hyperlipidemia, unspecified; F17.210 Nicotine dependence, cigarettes, uncomplicated; Z53.20 Procedure and treatment not carried out because of patient's decision for unspecified reasons

== ENCOUNTER → 2024-05-26 09:01 | Outpatient (BNVA) | payer MEDICARE, MEDICAID, SELFPAY | LOC: CF 10:01 | PROVIDERS: PCP Internal Medicine; Visit Provider Internal Medicine | DX: Z00.00 Encounter for general adult medical examination without abnormal findings (principal); R32 Unspecified urinary incontinence; E11.9 Type 2 diabetes mellitus without complications; E78.5 Hyperlipidemia, unspecified; J44.9 Chronic obstructive pulmonary disease, unspecified; F17.210 Nicotine dependence, cigarettes, uncomplicated; Z71.6 Tobacco abuse counseling | CPT/HCPCS: 96127 ==

== ENCOUNTER 2024-07-15 08:53 | Outpatient (REF) | payer MEDICARE, MEDICAID, SELFPAY ==
[2024-07-15 10:03] LABS: MANUAL DIFF FLAG NO
[2024-07-15 10:11] LABS: Basophils Percent Auto 0.6 % (0-2); Hematocrit 37.4 % (37.0-47.0); Hemoglobin 11.6 g/dl (12.0-16.0); Imm Gran Abs Auto 0.03 X10*3/uL (0.00-0.03); Imm Gran Pct Auto 0.5 % (0.0-0.4); Lymphocytes Absolute Auto 1.6 X10*3/uL (1.2-4.9); Lymphocytes Percent Auto 24.7 % (20-40); Mean Corpuscular Hemoglobin 24.6 pg (27.0-33.0); Mean Corpuscular Volume 79.2 fL (80.0-98.0); Mean Platelet Volume 9.7 fL (9.4-12.3); Monocytes Absolute Auto 0.6 X10*3/uL (0.1-1.2); Monocytes Percent Auto 9.4 % (2-11); Neutrophils Absolute Auto 4.3 x10*3/uL (2.0-8.3); Neutrophils Percent Auto 64.8 % (45-73); Platelet Count 237 X10*3/uL (160-400); Red Blood Count 4.72 X10*6/uL (4.20-5.50); White Blood Count 6.6 X10*3/uL (4.8-10.8)
[2024-07-15 10:56] LABS: Estimated Average Glucose 134 mg/dL; Hemoglobin A1C 132.3173 umol/L; Hemoglobin A1c % 6.3 % (<6.0); Total Hemoglobin (HGBA1C) 2953.1131 umol/L
[2024-07-15 11:13] LABS: Alanine Aminotransferase 11 U/L (0-31); Albumin Level 3.9 g/dL (3.5-5.0); Alkaline Phosphatase 140 U/L (39-117); Anion Gap 14 (12-20); Aspartate Amino Transferase 14 U/L (5-31); Bilirubin Total 0.5 mg/dL (0.0-1.0); Blood Urea Nitrogen 15 mg/dL (9-16); Calcium 9.1 mg/dL (8.4-10.2); Carbon Dioxide 28 mmol/L (22-29); Chloride 104 mmol/L (96-108); Cholesterol 123 mg/dL (<200); Estimated Glomerular Filt Rate > 60; Glucose Fasting 120 mg/dL (60-99); HDL Cholesterol 33 mg/dL (>40); LDL Cholesterol Calculated 49 mg/dL (<100); Potassium 4.5 mmol/L (3.3-5.1); Sodium 141 mmol/L (135-145); Total Protein 8.3 g/dL (6.5-8.0); Triglycerides 206 mg/dL (<150)
[2024-07-15 11:20] LABS: TSH reflex Free T4 0.88 uIU/mL (0.32-4.0)
[2024-07-15 11:23] LABS: Creatinine Urine 85.91 mg/dL; Microalbum/Creatinine Ratio Ur 11.6 ug/mg cr (<30)
== END 2024-07-15 08:54 | disposition home or self-care (01) ==
LOC: HO.HMGCLDS 08:53
PROVIDERS: PCP Internal Medicine; Visit Provider Internal Medicine
DX: E11.9 Type 2 diabetes mellitus without complications (principal); E78.5 Hyperlipidemia, unspecified; J44.9 Chronic obstructive pulmonary disease, unspecified; F17.210 Nicotine dependence, cigarettes, uncomplicated
CPT/HCPCS: 36415; 80053; 80061; 82043; 82570; 83036; 84443; 85025

== ENCOUNTER → 2024-10-02 23:59 | Outpatient (BNV) | payer MEDICARE, MEDICAID, SELFPAY | PROVIDERS: PCP Internal Medicine; Visit Provider Internal Medicine | DX: F41.8 Other specified anxiety disorders (principal); J44.9 Chronic obstructive pulmonary disease, unspecified; E11.9 Type 2 diabetes mellitus without complications | CPT/HCPCS: G0179 ==

== ENCOUNTER → 2024-11-19 23:59 | Outpatient (BNV) | payer MEDICARE, MEDICAID, SELFPAY | PROVIDERS: PCP Internal Medicine; Visit Provider Internal Medicine | DX: J44.9 Chronic obstructive pulmonary disease, unspecified (principal); I10 Essential (primary) hypertension; E11.9 Type 2 diabetes mellitus without complications | CPT/HCPCS: G0179 ==

== ENCOUNTER 2025-01-15 09:35 | Outpatient (REF) | payer MEDICARE, MEDICAID, SELFPAY ==
[2025-01-15 13:13] LABS: MANUAL DIFF FLAG NO
[2025-01-15 13:29] LABS: Hematocrit 37.4 % (37.0-47.0); Hemoglobin 11.3 g/dl (12.0-16.0); Imm Gran Abs Auto 0.03 X10*3/uL (0.00-0.03); Imm Gran Pct Auto 0.4 % (0.0-0.4); Lymphocytes Absolute Auto 1.7 X10*3/uL (1.2-4.9); Mean Corpuscular HGB Conc 30.2 g/dl (31.0-35.0); Mean Corpuscular Hemoglobin 23.8 pg (27.0-33.0); Mean Corpuscular Volume 78.7 fL (80.0-98.0); NRBC Abs Auto 0.000 X10*3/uL (0.0-0.012); NRBC Pct Auto 0.0 /100WBC (0.0-0.2); Platelet Count 204 X10*3/uL (160-400); Red Blood Count 4.75 X10*6/uL (4.20-5.50); White Blood Count 7.3 X10*3/uL (4.8-10.8)
[2025-01-15 13:39] LABS: Hemoglobin A1C 125.4385 umol/L; Total Hemoglobin (HGBA1C) 2999.6805 umol/L
[2025-01-15 13:48] LABS: Alanine Aminotransferase 10 U/L (0-31); Albumin Level 4.3 g/dL (3.5-5.0); Alkaline Phosphatase 116 U/L (39-117); Anion Gap 14 (12-20); Aspartate Amino Transferase 20 U/L (5-31); Blood Urea Nitrogen 18 mg/dL (9-16); Calcium 9.0 mg/dL (8.4-10.2); Carbon Dioxide 27 mmol/L (22-29); Chloride 105 mmol/L (96-108); Cholesterol 113 mg/dL (<200); Estimated Glomerular Filt Rate > 60; HDL Cholesterol 36 mg/dL (>40); Potassium 4.3 mmol/L (3.3-5.1); Sodium 142 mmol/L (135-145); Total Protein 7.8 g/dL (6.5-8.0); Triglycerides 202 mg/dL (<150)
[2025-01-15 13:49] LABS: Microalbum/Creatinine Ratio Ur 23.7 ug/mg cr (<30)
== END 2025-01-15 09:36 | disposition home or self-care (01) ==
LOC: HO.HMGCLDS 09:35
PROVIDERS: PCP Internal Medicine; Visit Provider Internal Medicine
DX: E11.9 Type 2 diabetes mellitus without complications (principal); E78.5 Hyperlipidemia, unspecified; I10 Essential (primary) hypertension; F32.9 Major depressive disorder, single episode, unspecified; J44.9 Chronic obstructive pulmonary disease, unspecified; F17.210 Nicotine dependence, cigarettes, uncomplicated; Z79.899 Other long term (current) drug therapy; Z13.31 Encounter for screening for depression; Z13.39 Encounter for screening examination for other mental health and behavioral disorders
CPT/HCPCS: 36415; 80053; 80061; 82043; 82570; 83036; 85025; 96127; 99212

== ENCOUNTER 2025-01-15 09:35 | Outpatient (AMB) | payer MEDICARE, MEDICAID, SELFPAY ==
--- NOTE | 2025-01-15 10:11 | MHC.PC.OV ---
Vital Signs 01/15/25 10:12 Height 5 ft 1 in Weight 181 lb BMI 34.2 BP 114/66 Blood Pressure Location Rt brachial Position Sitting Respiration 20 Pulse 102 H Pulse Source Pulse Oximeter Temp 98.0 F Temp Source Oral Pulse Oximetry (%) 95 Oxygen Delivery Method Room Air Intake Visit Reasons: Review Meds Intake Note: Pt is here today for a follow up visit. Allergies acetaminophen (From PERCOCET) Adverse Reaction (Mild, Verified 01/15/25 10:18) ITCH oxycodone (From PERCOCET) Adverse Reaction (Mild, Verified 01/15/25 10:18) ITCH morphine Adverse Reaction (Unknown, Verified 01/15/25 10:18) pt denies Medication List - Last Reconciled 01/15/25 by Eveline Ortega MD atorvastatin (Lipitor) 80 mg PO DAILY [bed pads 1 3 times daily; ] diaper,brief,adult,disposable (Depend Silhouette For Women L/XL) Pullups, size XL disposable gloves 3 x a day fluconazole 150 mg PO Q3D 2 doses ibuprofen 400 mg PO Q6H PRN loratadine 10 mg PO DAILY lorazepam (Ativan) 0.5 mg PO BEDTIME metformin 500 mg PO BID metoprolol succinate ER 75 mg (1.5 x 50 mg) PO DAILY nicotine (polacrilex) 4 mg buccal Q2H nicotine (polacrilex) 2 mg buccal Q8H PRN nut.tx.gluc.intol,lac-free,soy (Glucerna Advance oral liquid) 1 ea PO .qd omeprazole 20 mg PO DAILY oxcarbazepine 300 mg PO DAILY oxcarbazepine 150 mg PO BEDTIME risperidone 1 tab PO DAILY umeclidinium 62.5 mcg/actuation (Incruse Ellipta) 1 inh inhalation DAILY Tobacco use date assessed: 01/15/25 Fall risk assessment: No Falls in past year Last assessed Fall Risk: 01/15/25 Dental Screening Dental Screen Date: 01/15/25 Did you have a dental visit in the last 12 months?: No Did you have a dental problem in the last 6 months where you did not have access to dental care?: No Was dental information given to patient?: Patient declined HPI Review Meds HPI Details Patient presents for follow-up of type 2 diabetes hyperlipidemia hypertension stable on current medications. She is to establish with a psychiatrist for bipolar disorder, controlled on medications [facility], [facility] Medical History (Updated 01/15/25 @ 11:11 by Eveline Ortega MD) Annual physical exam DM type 2 (diabetes mellitus, type 2) HTN (hypertension) Hyperlipidemia GERD (gastroesophageal reflux disease) COPD (chronic obstructive pulmonary disease) Nicotine dependence, cigarettes, uncomplicated Depression Closed fracture of right proximal humerus Hoarseness Onychomycosis Colonoscopy refused Surgical History History of esophagogastroduodenoscopy (EGD) History of tonsillectomy Social History Housing: Apartment Alcohol intake: never Patient Tobacco Use Status: Current everyday Tobacco user Tobacco use type: Cigarette Cigarette Packs Per Day: 1 Cigarettes Per Day: 20 Years Smoked: (onset 15yo, 1ppd x 52yrs, 50pyh) e-Cigarette/Vaping Use: Never Used Advance Directives Date on File: 02/22/22 service: No Current occupational status: disabled Cognitive needs: No Hearing needs: No Vision needs: No Questionnaire PHQ-9 Over the last 2 weeks, how often have you been bothered by any of the following problems? 1. Little interest or pleasure in doing things: not at all 2. Feeling down, depressed, or hopeless: not at all 3. Trouble falling or staying asleep, or sleeping too much: not at all 4. Feeling tired or having little energy: not at all 5. Poor appetite or overeating: not at all 6. Feeling bad about yourself - or that you are a failure or have let yourself or your family down: not at all 7. Trouble concentrating on things, such as reading the newspaper or watching television: not at all 8. Moving or speaking so slowly that other people could have noticed. Or the opposite - being so fidgety or restless that you have been moving around a lot more than usual: not at all 9. Thoughts that you would be better off or of hurting yourself in some way: not at all Total score: 0 Depression Screening Interpretation: Negative Depression Screening Done: Yes 31111 - PHQ-9 Billing: Yes Source: Developed by Drs. Samantha Marie Kurt Kroenke and colleagues, with an educational nikki from [employer]. Thrive Questionnaire Date Thrive assessed: 01/15/25 I am a: Patient What is your living situation today?: I have a steady place to live Within the past 12 months, did the food you bought not last and you didn't have the money to get more?: Never true Within the past 12 months, did you worry whether your food would run out before you got money to buy more?: Never true Do you have trouble paying for medicines?: No Do you have trouble getting transportation to medical appointments?: No Do you have trouble paying your heating and electricity bill?: No Do you have trouble taking care of your child, family member or friend?: No Do you have trouble with day-to-day activities such as bathing, preparing meals, shopping, managing finances, etc.?: Yes Are you currently unemployed and looking for a job?: No Are you interested in more education?: No Please select the resources that you would like help with: None Currently or been in a relationship where the following occur: No concerns reported THRIVE Score: 0 AUDIT C Alcohol Use Questionnaire (AUDIT-C) 1. How often do you have a drink containing alcohol?: Never 3. How often do you have six or more drinks on one occasion?: Never Total Score: 0 ANTHONY-7 AMB Questionnaire ANTHONY-7 Date ANTHONY - 7 assessed: 01/15/25 Feeling nervous, anxious, or on edge: 0 = Not at all Not being able to stop or control worryin = Not at all Worrying too much about different things: 0 = Not at all Trouble relaxin = Not at all Being so restless that it is hard to sit still: 0 = Not at all Becoming easily annoyed or irritable: 0 = Not at all Feeling afraid as if something awful might happen: 0 = Not at all Total ANTHONY-7 score (0-4 normal; 5-9 mild; 10-14 moderate; 15-21 severe): 0 Source: Developed by Drs. Rohith Dangelo, Macho Marin and colleagues, with an educational nikki from [employer]. ANTHONY-7 Assessment Billing ANTHONY-7 Assessment Tool: ANTHONY-7 Assessment 46904 Review of Systems Const All systems reviewed & are unremarkable except as noted in HPI and below Eyes Reports no additional complaints ENT Reports no additional complaints Card Reports no additional complaints Resp Reports no additional complaints GI Reports no additional complaints Reports no additional complaints Physical exam (Primary Care) Vital Signs: Last Vital Signs Temp 98.0 F 01/15/25 10:12 Pulse 102 H 01/15/25 10:12 Resp 20 01/15/25 10:12 BP 114/66 01/15/25 10:12 Pulse Ox 95 01/15/25 10:12 Oxygen Delivery Method Room Air 01/15/25 10:12 BMI result Body Mass Index 34.2 Tobacco/Smoking Status: Tobacco use Status Tobacco use date assessed 01/15/25 01/15/25 10:23 Patient Tobacco Use Status Current everyday Tobacco 01/15/25 10:13 Tobacco use type Cigarette 01/15/25 10:13 e-Cigarette/Vaping Use Never Used 01/15/25 10:13 PHQ-9: PHQ-9 Score PHQ-9: Total score 0 01/15/25 10:23 Depression Screening Interpretation: Negative Thrive Assessment: Date of Thrive Assessment Date Thrive assessed 01/15/25 01/15/25 10:23 Currently or been in a relationship where the following occur: No concerns reported Const General: no acute distress HENMT Head: Yes normal to inspection Eyes General: appearance normal, both eyes and all related structures Resp Effort & Inspection: normal respiratory effort Auscultation: clear to auscultation bilaterally Cardio Rhythm: regular rhythm Heart sounds: S1 normal heart sound present and S2 normal heart sound present GI Inspection: Yes normal to inspection Palpation (GI): Soft to palpation Percussion: Yes normal to percussion Auscultation: normal bowel sounds Coding Level of Care Code Est Pt Level 4 (83614) Diagnoses DM type 2 (diabetes mellitus, type 2) E11.9 Hyperlipidemia E78.5 HTN (hypertension) I10 Depression F32.9 COPD (chronic obstructive pulmonary disease) J44.9 Nicotine dependence, cigarettes, uncomplicated F17.210 Additional Codes ANTHONY-7 Assessment Billing - ANTHONY-7 Assessment Tool: ANHTONY-7 Assessment 95127 ([id number]) PHQ-9 - 78193 - PHQ-9 Billing: Yes ([id number]) Assessment & Plan Assessment & Plan (1) DM type 2 (diabetes mellitus, type 2): Code(s): E11.9 - Type 2 diabetes mellitus without complications Category: Medical Plan: ADA diet regular exercise weight loss discussed with the patient continue metformin. Patient will have A1c today will return in 6 months with a fasting labs before (2) Hyperlipidemia: Code(s): E78.5 - Hyperlipidemia, unspecified Category: Medical Plan: Continue statin check lipid profile (3) HTN (hypertension): Code(s): I10 - Essential (primary) hypertension Category: Medical Plan: Continue metoprolol (4) Depression: Comment: F/U Dr. Buttefrield Code(s): F32.9 - Major depressive disorder, single episode, unspecified Category: Medical Plan: Do current medication follow-up with psychiatry (5) COPD (chronic obstructive pulmonary disease): Code(s): J44.9 - Chronic obstructive pulmonary disease, unspecified Category: Medical Plan: Tobacco quitting discussed with the patient she will try nicotine patch. Continue Incruse (6) Nicotine dependence, cigarettes, uncomplicated: Comment: (current smoker - onset 15yo, 1ppd x 52yrs, 50pyh) Code(s): F17.210 - Nicotine dependence, cigarettes, uncomplicated Category: Medical Plan: Tobacco quitting discussed with the patient follow-up with lung cancer screening program Orders: Orders Hemoglobin A1c Today E11.9 - Type 2 diabetes mellitus without complications, E78.5 - Hyperlipidemia, unspecified, I10 - Essential (primary) hypertension Lipid Panel Today E11.9 - Type 2 diabetes mellitus without complications, E78.5 - Hyperlipidemia, unspecified, I10 - Essential (primary) hypertension Complete Blood Count Auto Diff Today E11.9 - Type 2 diabetes mellitus without complications, E78.5 - Hyperlipidemia, unspecified, I10 - Essential (primary) hypertension Microalbumin, Random (w Creat) Today E11.9 - Type 2 diabetes mellitus without complications, E78.5 - Hyperlipidemia, unspecified, I10 - Essential (primary) hypertension Hemoglobin A1c 6 Months E11.9 - Type 2 diabetes mellitus without complications, E78.5 - Hyperlipidemia, unspecified, I10 - Essential (primary) hypertension Lipid Panel 6 Months E11.9 - Type 2 diabetes mellitus without complications, E78.5 - Hyperlipidemia, unspecified, I10 - Essential (primary) hypertension TSH reflex Free T4 6 Months E11.9 - Type 2 diabetes mellitus without complications, E78.5 - Hyperlipidemia, unspecified, I10 - Essential (primary) hypertension Comprehensive Met. Panel Today E11.9 - Type 2 diabetes mellitus without complications, E78.5 - Hyperlipidemia, unspecified, I10 - Essential (primary) hypertension Comprehensive [place]. Panel Fast 6 Months E11.9 - Type 2 diabetes mellitus without complications, E78.5 - Hyperlipidemia, unspecified, I10 - Essential (primary) hypertension Microalbumin, Random (w Creat) 6 Months E11.9 - Type 2 diabetes mellitus without complications, E78.5 - Hyperlipidemia, unspecified, I10 - Essential (primary) hypertension Medications: New fluconazole 150 mg PO Q3D 2 tabs 1RF 2 doses nicotine 1 patch transdermal DAILY 90 ea 1RF Refilled metoprolol succinate ER 75 mg (1.5 x 50 mg) PO DAILY 135 tabs 3RF atorvastatin (Lipitor) 80 mg PO DAILY 90 tabs 3RF metformin 500 mg PO BID 180 tabs 3RF umeclidinium 62.5 mcg/actuation (Incruse Ellipta) 1 inh inhalation DAILY 30 ea 3RF disposable gloves 3 x a day 100 ea 3RF Discontinued nicotine (polacrilex) Discontinued Reason: Doctor's Order 4 mg buccal Q2H 100 ea 2RF nicotine (polacrilex) Discontinued Reason: Doctor's Order 2 mg buccal Q8H PRN 108 ea 1RF nicotine cravings
[2025-01-15 10:12] VITALS: BP 114/66; PULSE 102; RESP 20; TEMP 36.7; O2SAT 95; BMI 34.2
== END 2025-01-15 11:05 | disposition home or self-care (01) ==
LOC: HO.HMCC 09:36
PROVIDERS: PCP Internal Medicine; Visit Provider Internal Medicine
DX: E11.69 Type 2 diabetes mellitus with other specified complication (principal); J44.9 Chronic obstructive pulmonary disease, unspecified; E78.5 Hyperlipidemia, unspecified; I10 Essential (primary) hypertension; F32.9 Major depressive disorder, single episode, unspecified; F17.210 Nicotine dependence, cigarettes, uncomplicated

== ENCOUNTER → 2025-02-09 23:59 | Outpatient (BNV) | payer MEDICARE, MEDICAID, SELFPAY | PROVIDERS: PCP Internal Medicine; Visit Provider Internal Medicine | DX: J44.9 Chronic obstructive pulmonary disease, unspecified (principal); E11.9 Type 2 diabetes mellitus without complications | CPT/HCPCS: G0179 ==

== ENCOUNTER → 2025-03-11 23:59 | Outpatient (BNV) | payer MEDICARE, MEDICAID, SELFPAY | PROVIDERS: PCP Internal Medicine; Visit Provider Internal Medicine | DX: F31.9 Bipolar disorder, unspecified (principal); J44.9 Chronic obstructive pulmonary disease, unspecified; E11.9 Type 2 diabetes mellitus without complications | CPT/HCPCS: G0179 ==